=== PATIENT | female | born 1965 | race Caucasian/White ===

== ENCOUNTER 2017-02-10 14:42 | Inpatient (IN) | payer OTHER ==
[2017-02-10 17:08] VITALS: BMI 25.0
--- NOTE | 2017-02-10 20:10 | HP ---
COWS - Scale Resting Pulse: 1= [place] 81-100 Sweatin= Chills/Flushing Restless Observation: 1= Difficult to Sit Still Pupil Size: 0= Normal to Room Light Bone or Joint Aches: 2= Severe Diffuse Aches Runny Nose/ Eye Tearin= Runny Nose/Eyes GI Upset > 30mins: 2= Nausea/Diarrhea Tremor Observation: 2= Slight Tremor Visible Yawning Observation: 1= 1-2x During Session Anxiety or Irritability: 2=Irritable/Anxious Goose Flesh Skin: 0=Smooth Skin COWS Score: 14 CIWA Score - CIWA Score Nausea/Vomitin-Mild Nausea/No Vomiting Muscle Tremors: 4-Moderate,w/Arms Extend Anxiety: 4-Mod. Anxious/Guarded Agitation: 4-Moderately Restless Paroxysmal Sweats: 1-Minimal Palms Moist Orientation: 1-Uncertain about Date Tacttile Disturbances: 0-None Auditory Disturbances: 0-None Visual Disturbances: 0-None Headache: 0-None Present CIWA-Ar Total Score: 15 Admission ROS S - HPI Chief Complaint: WITHDRAWAL SX Allergies/Adverse Reactions: Allergies Allergy/AdvReac Type Severity Reaction Status Date / Time No Known Allergies Allergy Verified 05/25/15 17:05 History of Present Illness: 51 YEARS OLD FEMALE WITH LONG HISTORY OF ALCOHOL HEROIN COCAINE NICOTINE DEPENDENCE, HAS HEPATITIS C CHRRHOSIS OF LIVER SINCE 2014 ACITES TREATED 05/12 PINT ABDOMINAL FLUID WAS RELEASED, HAS APPOINTMENT EVERY 6 MONTHS DUE 2016 AND BIPOLAR II IS ADMITTED TO REHAB Exam Limitations: No Limitations - Ebola screening Have you traveled outside of the country in the last 21 days: No Have you had contact with anyone from an Ebola affected area: No Have you been sick,other than usual withdrawal symptoms: No Do you have a fever: No - Review of Systems Constitutional: Loss of Appetite, Changes in sleep, Unintentional Wgt. Loss, Unexplained wgt Loss EENT: reports: Blurred Vision (EYE GLASSES) Respiratory: reports: No Symptoms reported Cardiac: reports: Edema (ABDOMINAL) GI: reports: Nausea, Poor Appetite, Poor Fluid Intake, Abdominal cramping : reports: No Symptoms Reported Musculoskeletal: reports: Back Pain, Joint Pain, Muscle Pain, Neck Pain Integumentary: reports: Bruising (LUMBAR REGION AND BOTH SHOULDERS AND NECK), Change in Color, Dryness Neuro: reports: Tremors Endocrine: reports: No Symptoms Reported Hematology: reports: Easy Bruising Psychiatric: reports: Judgement Intact, Mood/Affect Appropiate, Depressed Other Systems: Reviewed and Negative Patient History - Patient Medical History Hx Anemia: No Hx Asthma: No Hx Chronic Obstructive Pulmonary Disease (COPD): No Hx Cancer: No Hx Cardiac Disorders: No Hx Congestive Heart Failure: No Hx Hypertension: No Hx Hypercholesterolemia: No Hx Pacemaker: No HX Cerebrovascular Accident: No Hx Seizures: No Hx Dementia: No Hx Diabetes: No Hx Gastrointestinal Disorders: No Hx Liver Disease: Yes (cirrhosis, ascites ) Hx Genitourinary Disorders: No Hx Sexually Transmitted Disorders: No Hx Renal Disease (ESRD): No Hx Thyroid Disease: No Hx Human Immunodeficiency Virus (HIV): No Hx Hepatitis C: Yes (follow up with [facility]) Hx Depression: No Hx Suicide Attempt: No Hx Bipolar Disorder: Yes Hx Schizophrenia: No - Patient Surgical History Past Surgical History: Yes Hx Neurologic Surgery: No Hx Cataract Extraction: No Hx Cardiac Surgery: No Hx Lung Surgery: No Hx Breast Surgery: No Hx Breast Biopsy: No Hx Abdominal Surgery: Yes (ASCITES 2014) Hx Appendectomy: No Hx Cholecystectomy: No Hx Genitourinary Surgery: No Hx Section: Yes (1995) Hx Orthopedic Surgery: No Hx Hysterectomy: No Other Surgical History: C SECTION 1986 Ascities drained in 04/24 in [facility] Unit Anesthesia Reaction: No - PPD History Previous Implant?: Yes Documented Results: Negative w/o proof Implanted On Prior R Admission?: Yes Date: 03/22/14 PPD to be Administered?: Yes - Reproductive History Patient is a Female of Child Bearing Age (11 -55 yrs old): Yes Last Menstrual Period: 02/10/14 Patient : No - Smoking Cessation Smoking history: Current every day smoker Have you smoked in the past 12 months: Yes Aproximately how many cigarettes per day: 5 Cigars Per Day: 0 Hx Chewing Tobacco Use: No Initiated information on smoking cessation: Yes 'Breaking Loose' booklet given: 02/10/17 - Substance & Tx. History Hx Alcohol Use: Yes Hx Substance Use: Yes Substance Use Type: Alcohol, Cocaine, Heroin Hx Substance Use Treatment: Yes (2014) - Substances Abused Heroin Route: Inhalation Frequency: Daily Amount used: 2-3 bags Age of first use: 14 Date of Last Use: 02/10/17 Alcohol Route: Oral Frequency: Daily Amount used: Liquor 16 oz Age of first use: 12 Date of Last Use: 02/10/17 Cocaine Route: Smoking Frequency: 1-3 times last 30 days Amount used: $20 Age of first use: 27 Date of Last Use: 02/09/17 Family Disease History - Family Disease History Family Disease History: Heart Disease: Father (ALCOHOLISM/HTN), Mother ( DEPRESSION), Other: Father, Mother Admission Physical Exam S - Vital Signs Vital Signs: Vital Signs - 24 hr 02/10/17 17:05 Temperature 98.3 F Pulse Rate 86 Respiratory 18 Rate Blood Pressure 113/71 - Physical General Appearance: Yes: Appropriately Dressed, Mild Distress, Thin, Tremorous, Irritable, Sweating, Anxious HEENTM: Yes: Hearing grossly Normal, Normal ENT Inspection, Normocephalic, Normal Voice Respiratory: Yes: Chest Non-Tender, Lungs Clear, Normal Breath Sounds, No Respiratory Distress, No Accessory Muscle Use Neck: Yes: Supple, Trachea in good position Breast: Yes: Breasts Symetrical Cardiology: Yes: Regular Rhythm, Regular Rate, S1, S2 Abdominal: Yes: Non Tender, Soft, Distended, Hepatomegaly, Other (ASCITES) Genitourinary: Yes: Within Normal Limits Back: Yes: Normal Inspection Musculoskeletal: Yes: full range of Motion, Gait Steady, Back pain, Muscle Pain Extremities: Yes: Normal Range of Motion, Non-Tender, Tremors, Swelling (ANKLES) Neurological: Yes: Alert, Motor Strength 5/5, Normal Response, Depressed Affect Integumentary: Yes: Dry, Warm Lymphatic: Yes: Within Normal Limits - Diagnostic (1) Bipolar II disorder Current Visit: Yes Status: Suspected (2) Cirrhosis Current Visit: Yes Status: Chronic Qualifiers: Hepatic cirrhosis type: alcoholic cirrhosis Ascites presence: with ascites Qualified Code(s): K70.31 - Alcoholic cirrhosis of liver with ascites; K70.31 - Alcoholic cirrhosis of liver with ascites; K70.31 - Alcoholic cirrhosis of liver with ascites (3) Hepatitis C Current Visit: Yes Status: Chronic Qualifiers: Viral hepatitis chronicity: chronic Hepatic coma status: without hepatic coma Qualified Code(s): B18.2 - Chronic viral hepatitis C; B18.2 - Chronic viral hepatitis C; B18.2 - Chronic viral hepatitis C; B18.2 - Chronic viral hepatitis C (4) Nicotine dependence Current Visit: Yes Status: Acute Qualifiers: Nicotine product type: cigarettes Substance use status: in withdrawal Qualified Code(s): F17.213 - Nicotine dependence, cigarettes, with withdrawal; F17.213 - Nicotine dependence, cigarettes, with withdrawal (5) Alcohol dependence with uncomplicated withdrawal Current Visit: Yes Status: Acute (6) Opioid dependence with withdrawal Current Visit: Yes Status: Acute (7) Ascites Current Visit: Yes Status: Chronic Qualifiers: Ascites type: due to alcoholic cirrhosis Qualified Code(s): K70.31 - Alcoholic cirrhosis of liver with ascites; K70.31 - Alcoholic cirrhosis of liver with ascites; K70.31 - Alcoholic cirrhosis of liver with ascites Cleared for Admission [facility] - Detox or Rehab S Level of Care: Medically Managed Detox Regimen/Protocol: Methadone/Librium S Breath Alcohol Content Breath Alcohol Content: 0 Urine Pregancy Test - Result Urine Test Results: Negative- NO Line Present Urine Drug Screen - Results Drug Screen Negative: No Urine Drug Screen Results: MIKIE-Cocaine, OPI-Opiates
[2017-02-10] MEDS ORDERED: ACETAMINOPHEN 325 MG TABLET (FP) PO PRN (20:16)
[2017-02-10] MEDS ORDERED: LOPERAMIDE HCL 2 MG CAPSULE PO PRN (20:16)
[2017-02-10] MEDS ORDERED: diphenhydrAMINE HCL 50 MG CAPSULE PO PRN (20:16)
[2017-02-10] MEDS ORDERED: MAGNESIUM HYDROX 2400MG/30ML ORAL SUSPENSION 30 ML CUP PO PRN (20:16)
[2017-02-10] MEDS ORDERED: P-EPHED 60MG/TRIPROLIDI 2.5MG TABLET PO PRN (20:16)
[2017-02-10] MEDS ORDERED: IBUPROFEN 400 MG TABLET (FP) PO PRN (20:16)
[2017-02-10] MEDS ORDERED: MENTHOL/PHENOL 1 EACH UD MM PRN (20:16)
[2017-02-10] MEDS ORDERED: MAGNESIUM CITRATE 300 ML BOTTLE PO PRN (20:16)
[2017-02-10] MEDS ORDERED: NICOTINE POLACRILEX 2 MG GUM BUC PRN (20:16)
[2017-02-10] MEDS ORDERED: chlordiazePOXIDE HCL 25 MG CAPSULE PO PRN (20:16)
[2017-02-10] MEDS ORDERED: METHADONE HCL 10 MG TABLET (FOR DETOX USE ONLY) PO ONE ×2 (20:16→23:00)
[2017-02-10] MEDS ORDERED: MAG HYDROX/AL HYDROX/SIMETH 30 ML UNIT-DOSE CUP PO PRN (20:16)
[2017-02-10] MEDS ORDERED: guaiFENesin/D-METHORPHAN HB 10 ML UNIT-DOSE CUPS PO PRN (20:16)
[2017-02-10] MEDS ORDERED: COLLOIDAL OATMEAL 1 BAR EACH TP PRN (20:20)
[2017-02-10] MEDS ORDERED: METHOCARBAMOL 500 MG TABLET PO PRN (20:32)
[2017-02-10] MEDS ORDERED: ONDANSETRON *ODT* 4 MG TABLET SL PRN (20:43)
[2017-02-10] MEDS: MINERAL OIL/PETROLAT/WATER TOPICAL CREAM 113 GM JAR TP SCH (22:26)
[2017-02-10] MEDS: chlordiazePOXIDE HCL 25 MG CAPSULE PO SCH (22:27)
[2017-02-10] MEDS: THIAMINE HCL 100 MG TABLET (FP) PO SCH (22:27)
[2017-02-10 23:08] LABS: URINE APPEARANCE SLCLOUDY; URINE BILIRUBIN NEGATIVE (NEGATIVE); URINE BLOOD NEGATIVE (NEGATIVE); URINE COLOR AMBER; URINE GLUCOSE (UA) NEGATIVE (NEGATIVE); URINE KETONE NEGATIVE (NEGATIVE); URINE LEUK ESTERASE NEGATIVE (NEGATIVE); URINE NITRITE NEGATIVE (NEGATIVE); URINE PROTEIN NEGATIVE (NEGATIVE); URINE UROBILINOGEN 4.0 E.U/dl mg/dL (0.2-1.0)
[2017-02-11] MEDS: chlordiazePOXIDE HCL 25 MG CAPSULE PO SCH ×4 (05:24→22:27)
--- NOTE | 2017-02-11 07:37 | CONSULT ---
[facility] Psychiatric Consult - Data Date of interview: 02/11/17 Admission source: [facility] Identifying data: This is 51 years old [place] with no psychiatric hospitalization bnistory, history of Bip[olar disorder, intoxicated with: Alcohol, Coxcaine, Opioids, Nixotine, history of PCP abuse Substance Abuse History: ing Cessation. Smoking history: Current every day smoker. Have you smoked in the past 12 months: Yes. Aproximately how many cigarettes per day: 5. Cigars Per Day: 0. Hx Chewing Tobacco Use: No. Initiated information on smoking cessation: Yes. 'Breaking Loose' booklet given : 02/10/17. - Substance & Tx. History. Hx Alcohol Use: Yes. Hx Substance Use : Yes. Substance Use Type: Alcohol, Cocaine, Heroin. Hx Substance Use Treatment: Yes (2014). - Substances Abused. Heroin. Route: Inhalation. Frequency: Daily. Amount used: 2-3 bags. Age of first use: 14. Date of Last Use: 02/10/17. Alcohol. Route: Oral. Frequency: Daily. Amount used: Liquor 16 oz. Age of first use: 12. Date of Last Use: 02/10/17. Cocaine. Route: Smoking. Frequency: 1-3 times last 30 days. Amount used: $20. Age of first use: 27. Date of Last Use: 02/09/17 Medical History: HepC+, Liver Crrhisis history, Hisotri of Ascites Psychiatric History: Patient reports history of Bipolar Disorder-II, reports taking prior to admission: Flexaril 10mg po tid. Zyprexa 5mg po bid. Ambien 10mg po qhs Physical/Sexual Abuse/Trauma History: Denies Additional Comment: Flexaril 10mg po tid. Zyprexa 5mg po bid. Ambien 10mg po qhs Mental Status Exam - Mental Status Exam Alert and Oriented to: Person Cognitive Function: Fair Patient Appearance: Unkempt Mood: Sad Patient Behavior: Sedated Speech Pattern: Slurred Voice Loudness: Normal Thought Process: Goal Oriented Thought Disorder: Being Controlled Hallucinations: Denies Suicidal Ideation: Denies Homicidal Ideation: Denies Insight/Judgement: Fair Sleep: Difficulty falling asleep Appetite: Fair Muscle strength/Tone: Mild Hypotonicity Gait/Station: Shuffling Additional Comments: Flexaril 10mg po tid. Zyprexa 5mg po bid. Ambien 10mg po qhs Psychiatric Findings - Problem List ([place] 1, 2,3) (1) Alcohol dependence with uncomplicated withdrawal Current Visit: Yes Status: Acute (2) Nicotine dependence Current Visit: Yes Status: Acute Qualifiers: Nicotine product type: cigarettes Substance use status: in withdrawal Qualified Code(s): F17.213 - Nicotine dependence, cigarettes, with withdrawal; F17.213 - Nicotine dependence, cigarettes, with withdrawal (3) Opioid dependence with withdrawal Current Visit: Yes Status: Acute (4) Ascites Current Visit: Yes Status: Chronic Qualifiers: Ascites type: due to alcoholic cirrhosis Qualified Code(s): K70.31 - Alcoholic cirrhosis of liver with ascites; K70.31 - Alcoholic cirrhosis of liver with ascites; K70.31 - Alcoholic cirrhosis of liver with ascites (5) Hepatitis C Current Visit: Yes Status: Chronic Qualifiers: Viral hepatitis chronicity: chronic Hepatic coma status: without hepatic coma Qualified Code(s): B18.2 - Chronic viral hepatitis C; B18.2 - Chronic viral hepatitis C; B18.2 - Chronic viral hepatitis C; B18.2 - Chronic viral hepatitis C (6) Bipolar II disorder Current Visit: Yes Status: Suspected (7) Alcohol dependence Current Visit: No Status: Chronic Qualifiers: Substance use status: uncomplicated Qualified Code(s): F10.20 - Alcohol dependence, uncomplicated; F10.20 - Alcohol dependence, uncomplicated; F10.20 - Alcohol dependence, uncomplicated (8) Cocaine abuse Current Visit: No Status: Chronic (9) Cocaine dependence Current Visit: No Status: Chronic Qualifiers: Substance use status: uncomplicated Qualified Code(s): F14.20 - Cocaine dependence, uncomplicated; F14.20 - Cocaine dependence, uncomplicated; F14.20 - Cocaine dependence, uncomplicated (10) Opioid dependence Current Visit: No Status: Chronic Qualifiers: Substance use status: uncomplicated Qualified Code(s): F11.20 - Opioid dependence, uncomplicated; F11.20 - Opioid dependence, uncomplicated; F11.20 - Opioid dependence, uncomplicated (11) Opioid dependence on agonist therapy Current Visit: No Status: Chronic - Initial Treatment Plan Initial Treatment Plan: Flexaril 10mg po tid. Zyprexa 5mg po bid. Ambien 10mg po qhs
[2017-02-11 09:43] LABS: MCH 32.6 pg (25.7-33.7); MEAN CELL VOLUME 98.8 fl (80-96); MEAN PLT VOLUME 9.6 fl (7.5-11.1); PLATELET COUNT 123 K/MM3 (134-434); RDW 15.3 % (11.6-15.6); WHITE BLOOD COUNT 3.9 K/mm3 (4.0-10.0)
[2017-02-11 09:58] LABS: ALBUMIN 2.4 g/dl (3.4-5.0); ALK PHOS 156 U/L (45-117); ANION GAP 4 (8-16); BILIRUBIN,TOTAL 1.3 mg/dL (0.2-1.0); CO2 27 mmol/L (21-32); CREATININE 0.5 mg/dL (0.55-1.02); GLUCOSE,RANDOM 97 mg/dL (74-106); SGOT/AST 58 U/L (15-37); SGPT/ALT 48 U/L (12-78)
[2017-02-11] MEDS ORDERED: METHADONE HCL 10 MG TABLET (FOR DETOX USE ONLY) PO SCH (10:00)
[2017-02-11] MEDS: NICOTINE 14 MG/24 HOURS TOPICAL PATCH TD SCH (10:45)
[2017-02-11] MEDS: PRENATAL VITAMINS W/ FOLIC ACID TABLET (FP) PO SCH (10:46)
[2017-02-11 11:40] LABS: HIV 1 & 2 AB NEGATIVE; HIV 1 AGp24 NEGATIVE
--- NOTE | 2017-02-11 11:51 | EKG ---
Test Reason : Blood Pressure : / mmHG Vent. Rate : 079 BPM Atrial Rate : 079 BPM P-R Int : 144 ms QRS Dur : 082 ms QT Int : 420 ms P-R-T Axes : -22 026 026 degrees QTc Int : 481 ms NORMAL SINUS RHYTHM PROLONGED QT ABNORMAL ECG NO PREVIOUS ECGS AVAILABLE Confirmed by BEVERLY PINA, PURVI ([id number]) on 02/11/2017 11:51:03 AM Referred By: Confirmed By:PURVI PAUL MD
--- NOTE | 2017-02-11 12:55 | PN ---
S CIWA - CIWA Score Nausea/Vomitin Muscle Tremors: 3 Anxiety: 2 Agitation: 2 Paroxysmal Sweats: 1-Minimal Palms Moist Orientation: 0-Oriented Tacttile Disturbances: 1-Very Mild Itch/Numbness Auditory Disturbances: 1-Very Mild Visual Disturbances: 1-Very Mild Sensitivity Headache: 2-Mild CIWA-Ar Total Score: 16 [facility] COWS - Scale Resting Pulse: 1= [place] 81-100 Sweatin= Chills/Flushing Restless Observation: 3= Extraneous Movement Pupil Size: 1= Pupils >than Normal Bone or Joint Aches: 2= Severe Diffuse Aches Runny Nose/ Eye Tearin= Runny Nose/Eyes GI Upset > 30mins: 3= Vomiting/Diarrhea Tremor Observation of Outstretched Hands: 2= Slight Tremor Visible Yawning Observation: 1= 1-2x During Session Anxiety or Irritability: 2=Irritable/Anxious Goose Flesh Skin: 0=Smooth Skin COWS Score: 18 S Progress Note (SOAP) Subjective: alert,irritable,anxious,tremor,pain in the body,joint,and back Objective: 02/11/17 12:53 Vital Signs Temperature 98.4 F 02/11/17 10:40 Pulse Rate 91 H 02/11/17 10:40 Respiratory Rate 20 02/11/17 10:40 Blood Pressure 114/84 02/11/17 10:40 O2 Sat by Pulse Oximetry (%) Laboratory Last Values WBC 3.9 K/mm3 (4.0-10.0) L D 02/11/17 07:00 RBC 3.47 M/mm3 (3.60-5.2) L 02/11/17 07:00 Hgb 11.3 GM/dL (10.7-15.3) D 02/11/17 07:00 Hct 34.3 % (32.4-45.2) D 02/11/17 07:00 MCV 98.8 fl (80-96) H 02/11/17 07:00 MCH 32.6 pg (25.7-33.7) 02/11/17 07:00 MCHC 33.0 g/dl (32.0-36.0) 02/11/17 07:00 RDW 15.3 % (11.6-15.6) 02/11/17 07:00 Plt Count 123 K/MM3 (134-434) L D 02/11/17 07:00 MPV 9.6 fl (7.5-11.1) D 02/11/17 07:00 Sodium 146 mmol/L (136-145) H 02/11/17 07:00 Potassium 3.9 mmol/L (3.5-5.1) 02/11/17 07:00 Chloride 115 mmol/L (98-107) H 02/11/17 07:00 Carbon Dioxide 27 mmol/L (21-32) 02/11/17 07:00 Anion Gap 4 (8-16) L 02/11/17 07:00 BUN 15 mg/dL (7-18) D 02/11/17 07:00 Creatinine 0.5 mg/dL (0.55-1.02) L 02/11/17 07:00 Creat Clearance w eGFR > 60 (>60) 02/11/17 07:00 Random Glucose 97 mg/dL (74-106) D 02/11/17 07:00 Calcium 8.0 mg/dL (8.5-10.1) L 02/11/17 07:00 Total Bilirubin 1.3 mg/dL (0.2-1.0) H D 02/11/17 07:00 AST 58 U/L (15-37) H D 02/11/17 07:00 ALT 48 U/L (12-78) D 02/11/17 07:00 Alkaline Phosphatase 156 U/L (45-117) H 02/11/17 07:00 Total Protein 6.0 g/dl (6.4-8.2) L 02/11/17 07:00 Albumin 2.4 g/dl (3.4-5.0) L 02/11/17 07:00 Urine Color [place] 02/10/17 21:29 Urine Appearance Slcloudy 02/10/17 21:29 Urine pH 5.0 (5.0-8.0) 02/10/17 21:29 Ur Specific [place] 1.025 (1.005-1.025) 02/10/17 21:29 Urine Protein Negative (NEGATIVE) 02/10/17 21:29 Urine Glucose (UA) Negative (NEGATIVE) 02/10/17 21:29 Urine Ketones Negative (NEGATIVE) 02/10/17 21:29 Urine Blood Negative (NEGATIVE) 02/10/17 21:29 Urine Nitrite Negative (NEGATIVE) 02/10/17 21:29 Urine Bilirubin Negative (NEGATIVE) 02/10/17 21:29 Urine Urobilinogen 4.0 e.u/dl mg/dL (0.2-1.0) H 02/10/17 21:29 RPR Titer Nonreactive (NONREACTIVE) 02/11/17 07:00 HIV 1&2 Antibody Screen Negative 02/11/17 07:00 HIV P24 Antigen Negative 02/11/17 07:00 Assessment: 02/11/17 12:54 withdrawal symptom 02/11/17 12:55 02/11/17 12:55 02/11/17 12:57 Plan: continue detox
[2017-02-11] MEDS: CYCLOBENZAPRINE HCL 10 MG TABLET (FP) PO SCH ×2 (14:56→22:27)
[2017-02-11] MEDS: OLANZapine 5 MG TABLET PO SCH ×2 (14:56→22:28)
[2017-02-11] MEDS: MINERAL OIL/PETROLAT/WATER TOPICAL CREAM 113 GM JAR TP SCH (22:27)
[2017-02-11] MEDS: ZOLPIDEM TARTRATE 10 MG TABLET (PARK CARE ONLY) PO PRN (22:27)
[2017-02-11] MEDS: THIAMINE HCL 100 MG TABLET (FP) PO SCH (22:28)
[2017-02-12] MEDS ORDERED: LACTULOSE 20 GM/30 ML UDC (FOR ORAL USE ONLY) PO ONE (01:28)
--- NOTE | 2017-02-12 01:30 | PN ---
[facility] Progress Note Note: ammonia level 122.2,lactulose 20 gram po now then qid,close monitoring
[2017-02-12] MEDS: chlordiazePOXIDE HCL 25 MG CAPSULE PO SCH ×2 (06:44→11:31)
[2017-02-12] MEDS: CYCLOBENZAPRINE HCL 10 MG TABLET (FP) PO SCH (06:46)
[2017-02-12] MEDS: OLANZapine 5 MG TABLET PO SCH ×2 (11:30→22:08)
[2017-02-12] MEDS: PRENATAL VITAMINS W/ FOLIC ACID TABLET (FP) PO SCH (11:30)
[2017-02-12] MEDS: NICOTINE 14 MG/24 HOURS TOPICAL PATCH TD SCH (11:31)
[2017-02-12] MEDS: METHADONE HCL 5 MG TABLET (FOR DETOX USE ONLY) PO SCH (11:31)
[2017-02-12] MEDS: LACTULOSE 20 GM/30 ML UDC (FOR ORAL USE ONLY) PO SCH ×4 (11:34→22:09)
--- NOTE | 2017-02-12 12:02 | PN ---
[facility] CIWA - CIWA Score Nausea/Vomitin-No Nausea/No Vomiting Muscle Tremors: 4-Moderate,w/Arms Extend Anxiety: 3 Agitation: 4-Moderately Restless Paroxysmal Sweats: 3 Orientation: 0-Oriented Tacttile Disturbances: 0-None Auditory Disturbances: 0-None Visual Disturbances: 0-None Headache: 0-None Present CIWA-Ar Total Score: 14 S COWS - Scale Resting Pulse: 0= [place] 80 or Below Sweatin=Flushed/Facial Moisture Restless Observation: 0= Sits Still Pupil Size: 0= Normal to Room Light Bone or Joint Aches: 1= Mild Discomfort Runny Nose/ Eye Tearin= Nasal Congestion GI Upset > 30mins: 1= Stomach Cramp Tremor Observation of Outstretched Hands: 1= Tremor [place], Not Seen Yawning Observation: 1= 1-2x During Session Anxiety or Irritability: 1=Feels Anxious/Irritable Goose Flesh Skin: 3=Piloerection COWS Score: 11 [facility] Progress Note (SOAP) Subjective: sweats body aches sleepy Objective: 02/12/17 11:57 Vital Signs Temperature 98.1 F 02/12/17 11:17 Pulse Rate 80 02/12/17 11:17 Respiratory Rate 16 02/12/17 11:17 Blood Pressure 153/88 02/12/17 11:17 O2 Sat by Pulse Oximetry (%) Laboratory Tests 02/10/17 02/11/17 02/11/17 21:29 07:00 07:00 WBC 3.9 L D RBC 3.47 L Hgb 11.3 D Hct 34.3 D MCV 98.8 H MCH 32.6 MCHC 33.0 RDW 15.3 Plt Count 123 L D MPV 9.6 D Sodium Potassium Chloride Carbon Dioxide Anion Gap BUN Creatinine Creat Clearance w eGFR Random Glucose Calcium Total Bilirubin AST ALT Alkaline Phosphatase Ammonia Total Protein Albumin Urine Color [place] Urine Appearance Slcloudy Urine pH 5.0 Ur Specific [place] 1.025 Urine Protein Negative Urine Glucose (UA) Negative Urine Ketones Negative Urine Blood Negative Urine Nitrite Negative Urine Bilirubin Negative Urine Urobilinogen 4.0 e.u/dl H RPR Titer HIV 1&2 Antibody Screen Negative HIV P24 Antigen Negative 02/11/17 02/11/17 02/11/17 07:00 07:00 07:00 WBC RBC Hgb Hct MCV MCH MCHC RDW Plt Count MPV Sodium 146 H Potassium 3.9 Chloride 115 H Carbon Dioxide 27 Anion Gap 4 L BUN 15 D Creatinine 0.5 L Creat Clearance w eGFR > 60 Random Glucose 97 D Calcium 8.0 L Total Bilirubin 1.3 H D AST 58 H D ALT 48 D Alkaline Phosphatase 156 H Ammonia 122.92 H Total Protein 6.0 L Albumin 2.4 L Urine Color Urine Appearance Urine pH Ur Specific [place] Urine Protein Urine Glucose (UA) Urine Ketones Urine Blood Urine Nitrite Urine Bilirubin Urine Urobilinogen RPR Titer Nonreactive HIV 1&2 Antibody Screen HIV P24 Antigen increase ammonia level; continue lactulose pt is awake, alert to name and time; confused to place of treatment pt is unsteady with ambulating all sedating medication on hold increase fluids pt is on 1:1 for safety issues Assessment: 02/12/17 12:01 withdrawal sx Plan: continue detox increase fluids continue 1:1
[2017-02-12] MEDS: THIAMINE HCL 100 MG TABLET (FP) PO SCH (22:08)
[2017-02-12] MEDS: chlordiazePOXIDE 5 MG CAPSULE PO SCH (22:08)
[2017-02-12] MEDS: MINERAL OIL/PETROLAT/WATER TOPICAL CREAM 113 GM JAR TP SCH (22:09)
[2017-02-13] MEDS: chlordiazePOXIDE 5 MG CAPSULE PO SCH ×3 (07:33→18:11)
--- NOTE | 2017-02-13 08:20 | PN ---
[facility] Progress Note Note: alert,orientedx3,stable gait,discontinue one on one
[2017-02-13] MEDS: LACTULOSE 20 GM/30 ML UDC (FOR ORAL USE ONLY) PO SCH ×4 (10:28→23:51)
[2017-02-13] MEDS: NICOTINE 14 MG/24 HOURS TOPICAL PATCH TD SCH (10:28)
[2017-02-13] MEDS: PRENATAL VITAMINS W/ FOLIC ACID TABLET (FP) PO SCH (10:28)
[2017-02-13] MEDS: METHADONE HCL 5 MG TABLET (FOR DETOX USE ONLY) PO SCH (10:28)
[2017-02-13] MEDS: OLANZapine 5 MG TABLET PO SCH ×2 (10:28→23:52)
--- NOTE | 2017-02-13 12:05 | PN ---
[facility] Progress Note (SOAP) Subjective: feeling so much better sweats Objective: 02/13/17 12:04 Vital Signs Temperature 98.6 F 02/13/17 10:00 Pulse Rate 86 02/13/17 10:00 Respiratory Rate 18 02/13/17 10:00 Blood Pressure 113/56 02/13/17 10:00 O2 Sat by Pulse Oximetry (%) Laboratory Tests 02/10/17 02/11/17 02/11/17 21:29 07:00 07:00 WBC 3.9 L D RBC 3.47 L Hgb 11.3 D Hct 34.3 D MCV 98.8 H MCH 32.6 MCHC 33.0 RDW 15.3 Plt Count 123 L D MPV 9.6 D Sodium Potassium Chloride Carbon Dioxide Anion Gap BUN Creatinine Creat Clearance w eGFR Random Glucose Calcium Total Bilirubin AST ALT Alkaline Phosphatase Ammonia Total Protein Albumin Urine Color [place] Urine Appearance Slcloudy Urine pH 5.0 Ur Specific [place] 1.025 Urine Protein Negative Urine Glucose (UA) Negative Urine Ketones Negative Urine Blood Negative Urine Nitrite Negative Urine Bilirubin Negative Urine Urobilinogen 4.0 e.u/dl H RPR Titer HIV 1&2 Antibody Screen Negative HIV P24 Antigen Negative 02/11/17 02/11/17 02/11/17 07:00 07:00 07:00 WBC RBC Hgb Hct MCV MCH MCHC RDW Plt Count MPV Sodium 146 H Potassium 3.9 Chloride 115 H Carbon Dioxide 27 Anion Gap 4 L BUN 15 D Creatinine 0.5 L Creat Clearance w eGFR > 60 Random Glucose 97 D Calcium 8.0 L Total Bilirubin 1.3 H D AST 58 H D ALT 48 D Alkaline Phosphatase 156 H Ammonia 122.92 H Total Protein 6.0 L Albumin 2.4 L Urine Color Urine Appearance Urine pH Ur Specific [place] Urine Protein Urine Glucose (UA) Urine Ketones Urine Blood Urine Nitrite Urine Bilirubin Urine Urobilinogen RPR Titer Nonreactive HIV 1&2 Antibody Screen HIV P24 Antigen aaox3 ambulating no acute distress Assessment: 02/13/17 12:05 withdrawal sx Plan: continue detox
[2017-02-13] MEDS: THIAMINE HCL 100 MG TABLET (FP) PO SCH (22:13)
[2017-02-13] MEDS: chlordiazePOXIDE HCL 10 MG CAPSULE PO SCH (22:13)
[2017-02-13] MEDS: MINERAL OIL/PETROLAT/WATER TOPICAL CREAM 113 GM JAR TP SCH (23:51)
[2017-02-14] MEDS: chlordiazePOXIDE HCL 10 MG CAPSULE PO SCH ×3 (06:23→17:12)
[2017-02-14] MEDS ORDERED: METHADONE HCL 10 MG TABLET (FOR DETOX USE ONLY) PO SCH (10:00)
[2017-02-14] MEDS: OLANZapine 5 MG TABLET PO SCH ×2 (10:21→22:26)
[2017-02-14] MEDS: PRENATAL VITAMINS W/ FOLIC ACID TABLET (FP) PO SCH (10:21)
[2017-02-14] MEDS: NICOTINE 14 MG/24 HOURS TOPICAL PATCH TD SCH (10:22)
[2017-02-14] MEDS: LACTULOSE 20 GM/30 ML UDC (FOR ORAL USE ONLY) PO SCH ×4 (10:23→22:25)
--- NOTE | 2017-02-14 11:17 | PN ---
[facility] Progress Note (SOAP) Subjective: Sweating,interrupted sleep,restless Objective: 02/14/17 11:16 Vital Signs - 8 hr 02/14/17 02/14/17 02/14/17 03:30 06:00 10:00 Temperature 96.6 F L 99.0 F Pulse Rate 89 90 Respiratory 18 16 18 Rate Blood Pressure 132/76 141/63 Laboratory Last Values WBC 3.9 K/mm3 (4.0-10.0) L D 02/11/17 07:00 RBC 3.47 M/mm3 (3.60-5.2) L 02/11/17 07:00 Hgb 11.3 GM/dL (10.7-15.3) D 02/11/17 07:00 Hct 34.3 % (32.4-45.2) D 02/11/17 07:00 MCV 98.8 fl (80-96) H 02/11/17 07:00 MCH 32.6 pg (25.7-33.7) 02/11/17 07:00 MCHC 33.0 g/dl (32.0-36.0) 02/11/17 07:00 RDW 15.3 % (11.6-15.6) 02/11/17 07:00 Plt Count 123 K/MM3 (134-434) L D 02/11/17 07:00 MPV 9.6 fl (7.5-11.1) D 02/11/17 07:00 Sodium 146 mmol/L (136-145) H 02/11/17 07:00 Potassium 3.9 mmol/L (3.5-5.1) 02/11/17 07:00 Chloride 115 mmol/L (98-107) H 02/11/17 07:00 Carbon Dioxide 27 mmol/L (21-32) 02/11/17 07:00 Anion Gap 4 (8-16) L 02/11/17 07:00 BUN 15 mg/dL (7-18) D 02/11/17 07:00 Creatinine 0.5 mg/dL (0.55-1.02) L 02/11/17 07:00 Creat Clearance w eGFR > 60 (>60) 02/11/17 07:00 Random Glucose 97 mg/dL (74-106) D 02/11/17 07:00 Calcium 8.0 mg/dL (8.5-10.1) L 02/11/17 07:00 Total Bilirubin 1.3 mg/dL (0.2-1.0) H D 02/11/17 07:00 AST 58 U/L (15-37) H D 02/11/17 07:00 ALT 48 U/L (12-78) D 02/11/17 07:00 Alkaline Phosphatase 156 U/L (45-117) H 02/11/17 07:00 Ammonia 122.92 umol/L (11-32) H 02/11/17 07:00 Total Protein 6.0 g/dl (6.4-8.2) L 02/11/17 07:00 Albumin 2.4 g/dl (3.4-5.0) L 02/11/17 07:00 Urine Color [place] 02/10/17 21:29 Urine Appearance Slcloudy 02/10/17 21:29 Urine pH 5.0 (5.0-8.0) 02/10/17 21:29 Ur Specific [place] 1.025 (1.005-1.025) 02/10/17 21:29 Urine Protein Negative (NEGATIVE) 02/10/17 21:29 Urine Glucose (UA) Negative (NEGATIVE) 02/10/17 21:29 Urine Ketones Negative (NEGATIVE) 02/10/17 21:29 Urine Blood Negative (NEGATIVE) 02/10/17 21:29 Urine Nitrite Negative (NEGATIVE) 02/10/17 21:29 Urine Bilirubin Negative (NEGATIVE) 02/10/17 21:29 Urine Urobilinogen 4.0 e.u/dl mg/dL (0.2-1.0) H 02/10/17 21:29 RPR Titer Nonreactive (NONREACTIVE) 02/11/17 07:00 HIV 1&2 Antibody Screen Negative 02/11/17 07:00 HIV P24 Antigen Negative 02/11/17 07:00 labs noted Assessment: 02/14/17 11:16 Withdrawal sx. Plan: Continue detox
[2017-02-14] MEDS: CYCLOBENZAPRINE HCL 5 MG TABLET PO SCH ×2 (13:11→22:25)
[2017-02-14] MEDS: ZOLPIDEM TARTRATE 10 MG TABLET (PARK CARE ONLY) PO PRN (21:21)
[2017-02-14] MEDS: MINERAL OIL/PETROLAT/WATER TOPICAL CREAM 113 GM JAR TP SCH (22:25)
[2017-02-14] MEDS: THIAMINE HCL 100 MG TABLET (FP) PO SCH (22:26)
[2017-02-15] MEDS ORDERED: METHADONE HCL 5 MG TABLET (FOR DETOX USE ONLY) PO SCH (06:00)
[2017-02-15] MEDS: CYCLOBENZAPRINE HCL 5 MG TABLET PO SCH (06:15)
[2017-02-15] MEDS: PRENATAL VITAMINS W/ FOLIC ACID TABLET (FP) PO SCH (09:19)
[2017-02-15] MEDS: OLANZapine 5 MG TABLET PO SCH (09:20)
[2017-02-15] MEDS: LACTULOSE 20 GM/30 ML UDC (FOR ORAL USE ONLY) PO SCH (09:20)
--- NOTE | 2017-02-15 09:35 | DS ---
[facility] Detox Discharge Summary Admission Date: 02/10/17 Discharge Date: 02/15/17 - History Present History: Alcohol Dependence, Opioid Dependence Additional Comments: FOLLOW UP WITH [facility] Pertinent Past History: HEPATITIS C CIRRHOSIS NICOTINE DEPENDENCE ASCITES - Physical Exam Results Vital Signs: Vital Signs Temperature 99.5 F 02/15/17 06:00 Pulse Rate 95 H 02/15/17 06:00 Respiratory Rate 18 02/15/17 06:00 Blood Pressure 126/83 02/15/17 06:00 O2 Sat by Pulse Oximetry (%) Pertinent Admission Physical Exam Findings: WITHDRAWAL SYMPTOM - Treatment Hospital Course: Detox Protocol Followed, Detoxed Safely, Responded well, Discharged Condition Good, Rehab Referral Accepted Patient has Accepted a Rehab Referral to: [facility] - Medication Discharge Medications: Ambulatory Orders Cyclobenzaprine HCl [Flexeril 10 mg] 10 mg PO TID PRN 02/10/17 Olanzapine [Zyprexa -] 10 mg PO DAILY 02/10/17 Zolpidem Tartrate [Ambien] 10 mg PO HS 02/10/17 Cyclobenzaprine HCl [Flexeril -] 10 mg PO TID #90 tablet 02/11/17 Olanzapine [Zyprexa -] 5 mg PO BID #60 tablet 02/11/17 - AMA Did Patient Leave Against Medical Advice: No
[2017-02-15 10:26] VITALS: BP 119/65; PULSE 87; TEMP 97.3
--- NOTE | 2017-02-15 10:39 | PN ---
[facility] Progress Note Note: PATIENT ALSO HAS HIGH AMMONIA LEVEL PRESCRIPTION LACTULOSE 30 ML @) GRAMS) PO QID FOR 7 DAYS
== END 2017-02-15 10:06 | disposition home or self-care (01) | DRG 773 ==
LOC: YASAS 14:42 → Y6N 18:37
PROVIDERS: ADMIT Internal Medicine; ATTEND Internal Medicine
PROC: HZ2ZZZZ Detoxification Services for Substance Abuse Treatment (ICD-10-PCS; principal; 2017-02-10)
DX: F11.23 Opioid dependence with withdrawal (principal); F10.230 Alcohol dependence with withdrawal, uncomplicated; F14.10 Cocaine abuse, uncomplicated; F17.210 Nicotine dependence, cigarettes, uncomplicated; F31.81 Bipolar II disorder; F42.4 Excoriation (skin-picking) disorder; K70.31 Alcoholic cirrhosis of liver with ascites; E72.20 Disorder of urea cycle metabolism, unspecified; B18.2 Chronic viral hepatitis C
CPT/HCPCS: 36415; 80053; 81003; 82140; 85027; 86593; 87389; 93005; 93010

== ENCOUNTER 2017-09-24 09:23 | Inpatient (IN) | payer OTHER ==
[2017-09-24 09:53] VITALS: BMI 28.8
--- NOTE | 2017-09-24 13:02 | HP ---
COWS - Scale Resting Pulse: 2= IN 101-120 Sweatin= Chills/Flushing Restless Observation: 1= Difficult to Sit Still Pupil Size: 0= Normal to Room Light Bone or Joint Aches: 2= Severe Diffuse Aches Runny Nose/ Eye Tearin= None GI Upset > 30mins: 3= Vomiting/Diarrhea Tremor Observation: 2= Slight Tremor Visible Yawning Observation: 1= 1-2x During Session Anxiety or Irritability: 2=Irritable/Anxious Goose Flesh Skin: 3=Piloerection COWS Score: 17 CIWA Score - CIWA Score Nausea/Vomitin Muscle Tremors: 3 Anxiety: 4-Mod. Anxious/Guarded Agitation: 0-Normal Activity Paroxysmal Sweats: 2 Orientation: 0-Oriented Tacttile Disturbances: 3-Moderate Itch/Numb/Burn Auditory Disturbances: 1-Very Mild Visual Disturbances: 2-Mild Sensitivity Headache: 2-Mild CIWA-Ar Total Score: 20 Admission ROS BHS - HPI Chief Complaint: "I'm here for Detox and Rehab. I have had enough." Patient is here to Detox from alcohol and Heroin. Allergies/Adverse Reactions: Allergies Allergy/AdvReac Type Severity Reaction Status Date / Time No Known Allergies Allergy Verified 09/24/17 10:09 History of Present Illness: Patient is a 52 YO female here to Detox from heroin and Alcohol. Patient has had several previous Detox admissions at [facility] (last: 02/2017). Exam Limitations: No Limitations - Ebola screening Have you traveled outside of the country in the last 21 days: No Have you had contact with anyone from an Ebola affected area: No Have you been sick,other than usual withdrawal symptoms: No Do you have a fever: No - Review of Systems Constitutional: Chills, Diaphoresis, Fever, Malaise, Night Sweats, Changes in sleep EENT: reports: Blurred Vision, Tearing Respiratory: reports: SOB at Rest Cardiac: reports: No Symptoms Reported GI: reports: Diarrhea, Nausea, Vomiting, Indigestion : reports: No Symptoms Reported Musculoskeletal: reports: Back Pain, Joint Pain, Muscle Pain, Neck Pain, Joint Stiffness Integumentary: reports: No Symptoms Reported Neuro: reports: Headache, Numbness (In Fingertips of Bilateral Hands and toes of Bilateral feet.), Tingling (In Fingertips of Bilateral Hands and toes of Bilateral feet.), Tremors, Other ("Blackouts" Last episode: approx. 3 weeks ago. ) Endocrine: reports: No Symptoms Reported Hematology: reports: Anemia (Iron-Deficiency type. Iron supplementation in past , none currently.) Psychiatric: reports: Judgement Intact, Mood/Affect Appropiate, Orientated x3, Anxious, Depressed (Takes meds.) Other Systems: Reviewed and Negative Patient History - Patient Medical History Hx Anemia: Yes (Iron-Deficiency type, med. in past, none currently.) Hx Asthma: No Hx Chronic Obstructive Pulmonary Disease (COPD): No Hx Cancer: No Hx Cardiac Disorders: No Hx Congestive Heart Failure: No Hx Hypertension: No Hx Hypercholesterolemia: No Hx Pacemaker: No HX Cerebrovascular Accident: No Hx Seizures: No Hx Dementia: No Hx Diabetes: No Hx Gastrointestinal Disorders: No Hx Liver Disease: Yes (cirrhosis, ascites; Hep C (no treatment yet).) Hx Genitourinary Disorders: No Hx Sexually Transmitted Disorders: No Hx Renal Disease (ESRD): No Hx Thyroid Disease: No Hx Human Immunodeficiency Virus (HIV): No (Last Tested in 2016: NEGATIVE.) Hx Hepatitis C: Yes (Diagnosed 2004; [place] follow-up with [facility]) Hx Depression: Yes (Meds.) Hx Suicide Attempt: Yes (X1 by cutting wrist (2017); PATIENT DENIES CURRENT SI / HI.) Hx Bipolar Disorder: Yes (Meds.) Hx Schizophrenia: No Other Medical History: DENIES. - Patient Surgical History Past Surgical History: Yes Hx Neurologic Surgery: No Hx Cataract Extraction: No Hx Cardiac Surgery: No Hx Lung Surgery: No Hx Breast Surgery: Yes (breast mass removed bilateral 2016) Hx Breast Biopsy: No Hx Abdominal Surgery: Yes (ASCITES; FLUID DRAINED, 2014) Hx Appendectomy: No Hx Cholecystectomy: No Hx Genitourinary Surgery: No Hx Section: Yes (1985) Hx Orthopedic Surgery: No Hx Hysterectomy: No Other Surgical History: Repair of Left foot after injury (2015). Anesthesia Reaction: No - PPD History Previous Implant?: Yes Documented Results: Negative w/proof Date: 02/12/17 Results: 0mm PPD to be Administered?: No - Reproductive History Patient is a Female of Child Bearing Age (11 -55 yrs old): Yes Last Menstrual Period: 07/26/13 LMP comment: Last Menstruation: approx. 4 years ago. Patient : No - Smoking Cessation Smoking history: Current every day smoker Have you smoked in the past 12 months: Yes Aproximately how many cigarettes per day: 10 Cigars Per Day: 0 Hx Chewing Tobacco Use: No Initiated information on smoking cessation: Yes 'Breaking Loose' booklet given: 09/24/17 (GIVEN TO PATIENT.) - Substance & Tx. History Hx Alcohol Use: Yes Hx Substance Use: Yes Substance Use Type: Alcohol, Cocaine, Heroin Hx Substance Use Treatment: Yes (Previous Detox admissions at [facility] (Last: 2016).) - Substances Abused Heroin Route: Inhalation Frequency: Daily Amount used: 3BAGS Age of first use: 14 Date of Last Use: 09/23/17 Alcohol Route: Oral Frequency: 1-2 times per week Amount used: 1 PINT - vODKA Age of first use: 11 Date of Last Use: 09/24/17 Crack Route: Smoking Frequency: 1-2 times per week Amount used: $20 Age of first use: 23 Date of Last Use: 09/22/17 Family Disease History - Family Disease History Family Disease History: Heart Disease: Father (ALCOHOLISM/HTN), Other: Father, Mother (DEPRESSION), Daughter (ASTHMA.) Admission Physical Exam S - Vital Signs Vital Signs: Vital Signs - 24 hr 09/24/17 09:45 Temperature 98.7 F Pulse Rate 104 H Respiratory 18 Rate Blood Pressure 142/79 - Physical General Appearance: Yes: No Apparent Distress, Nourished, Appropriately Dressed , Tremorous, Anxious HEENTM: Yes: Hearing grossly Normal, Normocephalic, Normal Voice, KENISHA, Pharynx Normal Respiratory: Yes: Chest Non-Tender, Lungs Clear, No Respiratory Distress, No Accessory Muscle Use Neck: Yes: No masses,lesions,Nodules, Supple, Trachea in good position Breast: Yes: Breast Exam Deferred Cardiology: Yes: Regular Rhythm, Regular Rate, S1, S2, Tachycardia Abdominal: Yes: Normal Bowel Sounds, Non Tender, Distended (History of Ascites.) Genitourinary: Yes: Within Normal Limits Back: Yes: Decreased Range of Motion Musculoskeletal: Yes: Gait Steady, Back pain, Joint Stiffness Extremities: Yes: Normal Capillary Refill, Tremors Neurological: Yes: Fully Oriented, Alert, Normal Mood/Affect, Normal Response Integumentary: Yes: Normal Color, Dry, Warm, Track Gustafson (Noted in cubital crease of Right Arm. No Signs of infection noted at site.) Lymphatic: Yes: Within Normal Limits - Diagnostic (1) History of depression Current Visit: Yes Status: Suspected (2) History of bipolar disorder Current Visit: Yes Status: Acute (3) Alcohol dependence with uncomplicated withdrawal Current Visit: Yes Status: Acute (4) Nicotine dependence Current Visit: Yes Status: Chronic Qualifiers: Nicotine product type: cigarettes Substance use status: uncomplicated Qualified Code(s): F17.210 - Nicotine dependence, cigarettes, uncomplicated (5) Cirrhosis Current Visit: Yes Status: Chronic Qualifiers: Hepatic cirrhosis type: alcoholic cirrhosis Ascites presence: with ascites Qualified Code(s): K70.31 - Alcoholic cirrhosis of liver with ascites (6) Cocaine dependence Current Visit: Yes Status: Chronic Qualifiers: Substance use status: uncomplicated Qualified Code(s): F14.20 - Cocaine dependence, uncomplicated (7) Hepatitis C Current Visit: Yes Status: Chronic Qualifiers: Viral hepatitis chronicity: chronic Hepatic coma status: without hepatic coma Qualified Code(s): B18.2 - Chronic viral hepatitis C (8) Opioid dependence with withdrawal Current Visit: Yes Status: Acute (9) History of iron deficiency anemia Current Visit: Yes Status: Suspected Cleared for Admission S - Detox or Rehab [facility] Level of Care: Medically Managed Detox Regimen/Protocol: Methadone/Librium S Breath Alcohol Content Breath Alcohol Content: 0.076 Urine Pregancy Test - Result Urine Test Results: Negative- NO Line Present Urine Drug Screen - Results Drug Screen Negative: No Urine Drug Screen Results: THC-Marijuana, MIKIE-Cocaine, OPI-Opiates
[2017-09-24] MEDS ORDERED: MAGNESIUM HYDROX 2400MG/30ML ORAL SUSPENSION 30 ML CUP PO PRN (13:29)
[2017-09-24] MEDS ORDERED: P-EPHED 60MG/TRIPROLIDI 2.5MG TABLET PO PRN (13:29)
[2017-09-24] MEDS ORDERED: MAG HYDROX/AL HYDROX/SIMETH 30 ML UNIT-DOSE CUP PO PRN (13:29)
[2017-09-24] MEDS ORDERED: guaiFENesin/D-METHORPHAN HB 10 ML UNIT-DOSE CUPS PO PRN (13:29)
[2017-09-24] MEDS ORDERED: LOPERAMIDE HCL 2 MG CAPSULE PO PRN (13:29)
[2017-09-24] MEDS ORDERED: IBUPROFEN 400 MG TABLET (FP) PO PRN (13:29)
[2017-09-24] MEDS ORDERED: MAGNESIUM CITRATE 300 ML BOTTLE PO PRN (13:29)
[2017-09-24] MEDS ORDERED: MENTHOL/PHENOL 1 EACH UD MM PRN (13:29)
[2017-09-24] MEDS ORDERED: ACETAMINOPHEN 325 MG TABLET (FP) PO PRN (13:29)
[2017-09-24] MEDS ORDERED: chlordiazePOXIDE HCL 25 MG CAPSULE PO ONE (14:35)
[2017-09-24] MEDS ORDERED: METHADONE HCL 10 MG TABLET (FOR DETOX USE ONLY) PO ONE ×2 (14:40→23:00)
[2017-09-24] MEDS: SPIRONOLACTONE 25 MG TABLET (FP) PO SCH (15:21)
[2017-09-24] MEDS: FUROSEMIDE 20 MG TABLET (FP) PO SCH (15:22)
--- NOTE | 2017-09-24 16:23 | EKG ---
Test Reason : Blood Pressure : / mmHG Vent. Rate : 091 BPM Atrial Rate : 091 BPM P-R Int : 146 ms QRS Dur : 074 ms QT Int : 408 ms P-R-T Axes : -15 052 050 degrees QTc Int : 501 ms NORMAL SINUS RHYTHM PROLONGED QT ABNORMAL ECG WHEN COMPARED WITH ECG OF 10-FEB-2017 20:44, NONSPECIFIC T WAVE ABNORMALITY NO LONGER EVIDENT IN ANTERIOR LEADS Confirmed by ROZINA PINA, EDSON ([id number]) on 09/24/2017 4:23:45 PM Referred By: Confirmed By:EDSON HANDY MD
[2017-09-24] MEDS: chlordiazePOXIDE HCL 25 MG CAPSULE PO SCH ×2 (17:04→22:23)
[2017-09-24] MEDS ORDERED: MELATONIN 5 MG TABLETS PO PRN (22:00)
[2017-09-24] MEDS: THIAMINE HCL 100 MG TABLET (FP) PO SCH (22:23)
[2017-09-25 03:36] LABS: URINE APPEARANCE CLOUDY; URINE BILIRUBIN NEGATIVE (<2.0 mg/dL); URINE COLOR AMBER; URINE GLUCOSE (UA) NEGATIVE (NEGATIVE); URINE KETONE NEGATIVE (NEGATIVE); URINE LEUK ESTERASE NEGATIVE (NEGATIVE); URINE NITRITE NEGATIVE (NEGATIVE); URINE PROTEIN NEGATIVE (NEGATIVE); URINE UROBILINOGEN 4.0 E.U/dl mg/dL (0.2-1.0)
[2017-09-25] MEDS: chlordiazePOXIDE HCL 25 MG CAPSULE PO SCH ×4 (05:24→22:19)
[2017-09-25 09:33] LABS: HEMATOCRIT 38.5 % (32.4-45.2); HEMOGLOBIN 13.2 GM/dL (10.7-15.3); MCH 33.9 pg (25.7-33.7); MCHC 34.2 g/dl (32.0-36.0); MEAN CELL VOLUME 99.2 fl (80-96); MEAN PLT VOLUME 8.2 fl (7.5-11.1); PLATELET COUNT 86 K/MM3 (134-434); RBC 3.88 M/mm3 (3.60-5.2); RDW 14.2 % (11.6-15.6); WHITE BLOOD COUNT 4.4 K/mm3 (4.0-10.0)
[2017-09-25 09:49] LABS: CHLORIDE 107 mmol/L (98-107); SODIUM 141 mmol/L (136-145)
[2017-09-25] MEDS ORDERED: METHADONE HCL 10 MG TABLET (FOR DETOX USE ONLY) PO SCH (10:00)
[2017-09-25 10:01] LABS: ALK PHOS 171 U/L (45-117); ANION GAP 8 (8-16); BILIRUBIN,TOTAL 2.4 mg/dL (0.2-1.0); BLOOD UREA NITROGEN 12 mg/dL (7-18); CALCIUM 8.1 mg/dL (8.5-10.1); CO2 26 mmol/L (21-32); CREATININE 0.7 mg/dL (0.55-1.02); GLUCOSE,RANDOM 193 mg/dL (74-106); SGOT/AST 64 U/L (15-37); SGPT/ALT 50 U/L (12-78)
--- NOTE | 2017-09-25 10:12 | PN ---
S CIWA - CIWA Score Nausea/Vomitin Muscle Tremors: 3 Anxiety: 3 Agitation: 3 Paroxysmal Sweats: 1-Minimal Palms Moist Orientation: 0-Oriented Tacttile Disturbances: 1-Very Mild Itch/Numbness Auditory Disturbances: 1-Very Mild Visual Disturbances: 0-None Headache: 2-Mild CIWA-Ar Total Score: 17 BHS Progress Note (SOAP) Subjective: ALERT,IRRITABLE,ANXIOUS,INTERRUPTED SLEEP,TREMOR Objective: 09/25/17 10:07 Vital Signs Temperature 98.4 F 09/25/17 09:41 Pulse Rate 107 H 09/25/17 09:41 Respiratory Rate 18 09/25/17 09:41 Blood Pressure 136/86 09/25/17 09:41 O2 Sat by Pulse Oximetry (%) 09/25/17 10:07 EKG NSR,PROLONG QT 408/501 Laboratory Last Values WBC 4.4 K/mm3 (4.0-10.0) 09/25/17 05:50 RBC 3.88 M/mm3 (3.60-5.2) 09/25/17 05:50 Hgb 13.2 GM/dL (10.7-15.3) D 09/25/17 05:50 Hct 38.5 % (32.4-45.2) 09/25/17 05:50 MCV 99.2 fl (80-96) H 09/25/17 05:50 MCH 33.9 pg (25.7-33.7) H 09/25/17 05:50 MCHC 34.2 g/dl (32.0-36.0) 09/25/17 05:50 RDW 14.2 % (11.6-15.6) 09/25/17 05:50 Plt Count 86 K/MM3 (134-434) L D 09/25/17 05:50 MPV 8.2 fl (7.5-11.1) D 09/25/17 05:50 Sodium 141 mmol/L (136-145) 09/25/17 05:50 Potassium 4.0 mmol/L (3.5-5.1) 09/25/17 05:50 Chloride 107 mmol/L (98-107) 09/25/17 05:50 Carbon Dioxide 26 mmol/L (21-32) 09/25/17 05:50 Anion Gap 8 (8-16) 09/25/17 05:50 BUN 12 mg/dL (7-18) 09/25/17 05:50 Creatinine 0.7 mg/dL (0.55-1.02) 09/25/17 05:50 Creat Clearance w eGFR > 60 (>60) 09/25/17 05:50 Random Glucose 193 mg/dL (74-106) H 09/25/17 05:50 Calcium 8.1 mg/dL (8.5-10.1) L 09/25/17 05:50 Total Bilirubin 2.4 mg/dL (0.2-1.0) H D 09/25/17 05:50 AST 64 U/L (15-37) H 09/25/17 05:50 ALT 50 U/L (12-78) 09/25/17 05:50 Alkaline Phosphatase 171 U/L (45-117) H 09/25/17 05:50 Total Protein 7.0 g/dl (6.4-8.2) 09/25/17 05:50 Albumin 3.0 g/dl (3.4-5.0) L 09/25/17 05:50 Urine Color [place] 09/24/17 15:10 Urine Appearance Cloudy 09/24/17 15:10 Urine pH 7.0 (5.0-8.0) D 09/24/17 15:10 Ur Specific [place] 1.017 (1.001-1.035) 09/24/17 15:10 Urine Protein Negative (NEGATIVE) 09/24/17 15:10 Urine Glucose (UA) Negative (NEGATIVE) 09/24/17 15:10 Urine Ketones Negative (NEGATIVE) 09/24/17 15:10 Urine Blood Negative (NEGATIVE) 09/24/17 15:10 Urine Nitrite Negative (NEGATIVE) 09/24/17 15:10 Urine Bilirubin Negative (<2.0 mg/dL) 09/24/17 15:10 Urine Urobilinogen 4.0 e.u/dl mg/dL (0.2-1.0) H 09/24/17 15:10 Ur Leukocyte Esterase Negative (NEGATIVE) 09/24/17 15:10 09/25/17 10:09 LABS PENDING Assessment: 09/25/17 10:09 WITHDRAWAL SYMPTOM Plan: CONTINUE DETOX,BGM MONITORING,INITIAL GLUCOSE 193,BILI 2.4,AST 64,FASTING BLOOD GLUCOSE IN AM,REPEAT CMP,INR IN AM,D/C TYLENOL
[2017-09-25] MEDS: FUROSEMIDE 20 MG TABLET (FP) PO SCH (10:42)
[2017-09-25] MEDS: SPIRONOLACTONE 25 MG TABLET (FP) PO SCH (10:42)
[2017-09-25] MEDS: PRENATAL VITAMINS W/ FOLIC ACID TABLET (FP) PO SCH (10:42)
--- NOTE | 2017-09-25 16:41 | CONSULT ---
[facility] Psychiatric Consult - Data Date of interview: 09/25/17 Admission source: [facility] Identifying data: Readmission to [facility] for this 52 y/o female seeking detox treatment on for heroin,cocaine (crack) and alcohol dependence.Patient is ,a mother of five,domiciled,unemployed and supported on Public Assistance. Substance Abuse History: Confirmed by patient in this interview.Smoking history : Current every day smoker. Have you smoked in the past 12 months: Yes. Aproximately how many cigarettes per day: 10. Cigars Per Day: 0. Hx Chewing Tobacco Use: No. Initiated information on smoking cessation: Yes. 'Breaking Loose' booklet given: 09/24/17 (GIVEN TO PATIENT.). - Substance & Tx. History. Hx Alcohol Use: Yes. Hx Substance Use: Yes. Substance Use Type: Alcohol, Cocaine, Heroin. Hx Substance Use Treatment: Yes (Previous Detox admissions at [facility] (Last: 02/2017).). - Substances Abused. Heroin. Route: Inhalation. Frequency: Daily. Amount used: 3BAGS. Age of first use: 14. Date of Last Use : 09/23/17. Alcohol. Route: Oral. Frequency: 1-2 times per week. Amount used: 1 PINT - vODKA. Age of first use: 11. Date of Last Use: 09/24/17. Crack. Route: Smoking. Frequency: 1-2 times per week. Amount used: $20. Age of first use: 23. Date of Last Use: 09/22/17 Medical History: Hepatitis C and cirrhosis of the liver. Psychiatric History: Patient admits to a history of one psychiatric hospitalization ([facility] in 2017).Diagnosed with Bipolar Disorder.Prescribed risperdal 1 mg /hs + zyprexa 10 mg/hs + remeron 30 mg/hs + ambien 10 mg/hs (verified by pharmacy claims of 09/07/17 at the [facility]).Ms Carranza is followed at the [facility] in the [place].Presents with a history of one suicide attempt (wrist-cutting) in 2017. Physical/Sexual Abuse/Trauma History: Patient denies. Additional Comment: Urine Drug Screen Results: THC-Marijuana, MIKIE-Cocaine, OPI- Opiates.Noted. Mental Status Exam - Mental Status Exam Alert and Oriented to: Time, Place, Person Cognitive Function: Good Patient Appearance: Well Groomed (small stature,petite) Mood: Anxious, Apprehensive Affect: Mood Congruent Patient Behavior: Fatigued, Appropriate, Cooperative Speech Pattern: Clear, Appropriate Voice Loudness: Normal Thought Process: Goal Oriented Thought Disorder: Not Present Hallucinations: Denies Suicidal Ideation: Denies Homicidal Ideation: Denies Insight/Judgement: Poor Sleep: Poorly, Difficulty falling asleep Appetite: Good Muscle strength/Tone: Normal Gait/Station: Normal Psychiatric Findings - Problem List ([place] 1, 2,3) (1) Opioid dependence with withdrawal Current Visit: Yes Status: Acute (2) Alcohol dependence with uncomplicated withdrawal Current Visit: Yes Status: Acute (3) Cocaine dependence Current Visit: Yes Status: Acute Qualifiers: Substance use status: uncomplicated Qualified Code(s): F14.20 - Cocaine dependence, uncomplicated (4) Nicotine dependence Current Visit: Yes Status: Acute Qualifiers: Nicotine product type: cigarettes Substance use status: uncomplicated Qualified Code(s): F17.210 - Nicotine dependence, cigarettes, uncomplicated (5) Substance induced mood disorder Current Visit: Yes Status: Acute (6) Bipolar disorder Current Visit: Yes Status: Acute (7) Insomnia Current Visit: Yes Status: Acute - Initial Treatment Plan Initial Treatment Plan: Psychoeducation.Sleep hygiene.Detoxification.Medications : zyprexa 10 mg po daily + ambien 10 mg po hs prn + remeron 15 mg po hs.Side effects/benefits of these medications are discussed with the patient.She agrees with this careplan.Observation.
[2017-09-25] MEDS: chlordiazePOXIDE HCL 25 MG CAPSULE PO PRN (18:33)
[2017-09-25] MEDS ORDERED: ZOLPIDEM TARTRATE 10 MG TABLET (PARK CARE ONLY) PO PRN (22:00)
[2017-09-25] MEDS: THIAMINE HCL 100 MG TABLET (FP) PO SCH (22:18)
[2017-09-25] MEDS: MIRTAZAPINE 15 MG TABLET (FP) PO SCH (22:19)
[2017-09-26] MEDS: chlordiazePOXIDE HCL 25 MG CAPSULE PO PRN (01:08)
--- NOTE | 2017-09-26 02:53 | PN ---
[facility] Progress Note Note: MD'S NOTE: CALLED AT 2:15AM AND INFORMED THAT THE PT. FELL ON THE FLOOR AND HIT THE HEAD - SHE CLAIMS SUB: DENIES ANY PAIN, HEADACHES, BLURRED VISION, N/V, DIZZINESS OBJ: THE PT. IS AYALA X 3, NOT IN DISTRESS AND SHE IS AMBULATORY V/S: 98.8B-34-11-141/80-02 SATS. AT 99% S/E: DIAL MAKER: NO FOCAL DEFICITS NOTED NO VISIBLE INJURIES NOTED AT THIS TIME CVS: -JVD, NL HEART SOUNDS, NO MURMURS LUNGS: VESICULAR BREATH SOUNDS, NO RALES, NO RHONCHI, NO WHEEZING ABD: DISTENDED, SOFT, NT, B.S.+ IMPRESSION: ACCIDENTAL FALL - APPARENTLY WITHOUT ANY VISIBLE INJURY AT THIS TIME PLANS: PROTOCOL #1 OBSERVATION ER - DR. ROBSON PINA WAS NOTIFIED AND THE PT. IS BEING TRANSFERRED TO THE ER FOR EVALUATION WITH CT-SCAN OF THE HEAD WILL F/U: NEEDED. PROVIDER: IRVIN DURON MD
[2017-09-26] MEDS: chlordiazePOXIDE HCL 25 MG CAPSULE PO SCH ×2 (06:17→10:50)
[2017-09-26] MEDS: SPIRONOLACTONE 25 MG TABLET (FP) PO SCH (10:48)
[2017-09-26] MEDS: METHADONE HCL 5 MG TABLET (FOR DETOX USE ONLY) PO SCH (10:49)
[2017-09-26] MEDS: PRENATAL VITAMINS W/ FOLIC ACID TABLET (FP) PO SCH (10:49)
[2017-09-26] MEDS: FUROSEMIDE 20 MG TABLET (FP) PO SCH (10:49)
[2017-09-26] MEDS: OLANZapine 10 MG TABLET PO SCH (11:00)
--- NOTE | 2017-09-26 14:08 | PN ---
S CIWA - CIWA Score Nausea/Vomitin Muscle Tremors: 3 Anxiety: 3 Agitation: 3 Paroxysmal Sweats: 2 Orientation: 0-Oriented Tacttile Disturbances: 0-None Auditory Disturbances: 0-None Visual Disturbances: 0-None Headache: 0-None Present CIWA-Ar Total Score: 14 S Progress Note (SOAP) Subjective: Sleep disturbance Sweats shakes abdominal cramp Objective: 09/26/17 14:05 A & O x 3 Anxious returned from ER, states feels fine post fall Vital Signs Temperature 98.8 F 09/26/17 13:55 Pulse Rate 98 H 09/26/17 13:55 Respiratory Rate 18 09/26/17 13:55 Blood Pressure 148/79 09/26/17 13:55 O2 Sat by Pulse Oximetry (%) Laboratory Last Values WBC 4.4 K/mm3 (4.0-10.0) 09/25/17 05:50 RBC 3.88 M/mm3 (3.60-5.2) 09/25/17 05:50 Hgb 13.2 GM/dL (10.7-15.3) D 09/25/17 05:50 Hct 38.5 % (32.4-45.2) 09/25/17 05:50 MCV 99.2 fl (80-96) H 09/25/17 05:50 MCH 33.9 pg (25.7-33.7) H 09/25/17 05:50 MCHC 34.2 g/dl (32.0-36.0) 09/25/17 05:50 RDW 14.2 % (11.6-15.6) 09/25/17 05:50 Plt Count 86 K/MM3 (134-434) L D 09/25/17 05:50 MPV 8.2 fl (7.5-11.1) D 09/25/17 05:50 Sodium 141 mmol/L (136-145) 09/25/17 05:50 Potassium 4.0 mmol/L (3.5-5.1) 09/25/17 05:50 Chloride 107 mmol/L (98-107) 09/25/17 05:50 Carbon Dioxide 26 mmol/L (21-32) 09/25/17 05:50 Anion Gap 8 (8-16) 09/25/17 05:50 BUN 12 mg/dL (7-18) 09/25/17 05:50 Creatinine 0.7 mg/dL (0.55-1.02) 09/25/17 05:50 Creat Clearance w eGFR > 60 (>60) 09/25/17 05:50 Random Glucose 193 mg/dL (74-106) H 09/25/17 05:50 Calcium 8.1 mg/dL (8.5-10.1) L 09/25/17 05:50 Total Bilirubin 2.4 mg/dL (0.2-1.0) H D 09/25/17 05:50 AST 64 U/L (15-37) H 09/25/17 05:50 ALT 50 U/L (12-78) 09/25/17 05:50 Alkaline Phosphatase 171 U/L (45-117) H 09/25/17 05:50 Total Protein 7.0 g/dl (6.4-8.2) 09/25/17 05:50 Albumin 3.0 g/dl (3.4-5.0) L 09/25/17 05:50 Urine Color Quiana 09/24/17 15:10 Urine Appearance Cloudy 09/24/17 15:10 Urine pH 7.0 (5.0-8.0) D 09/24/17 15:10 Ur Specific [place] 1.017 (1.001-1.035) 09/24/17 15:10 Urine Protein Negative (NEGATIVE) 09/24/17 15:10 Urine Glucose (UA) Negative (NEGATIVE) 09/24/17 15:10 Urine Ketones Negative (NEGATIVE) 09/24/17 15:10 Urine Blood Negative (NEGATIVE) 09/24/17 15:10 Urine Nitrite Negative (NEGATIVE) 09/24/17 15:10 Urine Bilirubin Negative (<2.0 mg/dL) 09/24/17 15:10 Urine Urobilinogen 4.0 e.u/dl mg/dL (0.2-1.0) H 09/24/17 15:10 Ur Leukocyte Esterase Negative (NEGATIVE) 09/24/17 15:10 RPR Titer Nonreactive (NONREACTIVE) 09/25/17 05:50 HIV 1&2 Antibody Screen Negative 09/25/17 05:50 HIV P24 Antigen Negative 09/25/17 05:50 labs noted Assessment: 09/26/17 14:07 withdrawal sx Plan: continue detox increase hydration vistaril for agitation
[2017-09-26] MEDS: hydrOXYzine PAMOATE 25 MG CAPSULE (FP) PO PRN (14:41)
[2017-09-26] MEDS ORDERED: chlordiazePOXIDE 5 MG CAPSULE PO SCH (17:00)
--- NOTE | 2017-09-26 20:23 | PN ---
[facility] Progress Note Note: Was called to the floor for pt's fall. Per pt, she fell and landed on her buttock. Denies hitting her head nor any other part of her body. Pt noted to be A & O x 3, a little sluggish, no signs of injury. Fall was not witnessed. Pt declined ED visit because she was earlier sent for post fall eval. Educated pt to reduce ambulation. VS - 129/71, 102, 98.2, 17. FS - 164mg/dl Denies chest pains, dizziness. ammonium level ordered
--- NOTE | 2017-09-26 20:31 | PN ---
[facility] Progress Note Note: Librium 10pm dose put on hold
[2017-09-26] MEDS: THIAMINE HCL 100 MG TABLET (FP) PO SCH (22:28)
[2017-09-26] MEDS: MIRTAZAPINE 15 MG TABLET (FP) PO SCH (22:28)
[2017-09-27] MEDS ORDERED: IBUPROFEN 400 MG TABLET (FP) PO PRN (10:14)
[2017-09-27] MEDS: OLANZapine 10 MG TABLET PO SCH (10:25)
[2017-09-27] MEDS: METHADONE HCL 5 MG TABLET (FOR DETOX USE ONLY) PO SCH (10:25)
[2017-09-27] MEDS: FUROSEMIDE 20 MG TABLET (FP) PO SCH (10:25)
[2017-09-27] MEDS: SPIRONOLACTONE 25 MG TABLET (FP) PO SCH (10:25)
[2017-09-27] MEDS: PRENATAL VITAMINS W/ FOLIC ACID TABLET (FP) PO SCH (10:25)
[2017-09-27] MEDS: hydrOXYzine PAMOATE 25 MG CAPSULE (FP) PO PRN (10:28)
--- NOTE | 2017-09-27 10:49 | PN ---
[facility] Progress Note (SOAP) Subjective: headaches back pain sweats Objective: 09/27/17 10:48 Vital Signs Temperature 98.1 F 09/27/17 07:35 Pulse Rate 99 H 09/27/17 07:35 Respiratory Rate 18 09/27/17 07:35 Blood Pressure 135/87 09/27/17 07:35 O2 Sat by Pulse Oximetry (%) aaox3 ambulating no acute distress Assessment: 09/27/17 10:48 withdrawal sx Plan: continue detox increase fluids motrin 800 mg prn lidocaine patch daily
[2017-09-27] MEDS ORDERED: LIDOCAINE 5% TOPICAL PATCH TP ONE (11:45)
[2017-09-27] MEDS: VITAMINS A AND D TOPICAL OINTMENT 60 GM TUBE TP SCH ×3 (13:00→23:02)
[2017-09-27] MEDS: LACTULOSE 20 GM/30 ML UDC (FOR ORAL USE ONLY) PO SCH ×2 (15:51→22:19)
[2017-09-27] MEDS: chlordiazePOXIDE HCL 10 MG CAPSULE PO SCH ×2 (18:11→22:19)
[2017-09-27] MEDS: THIAMINE HCL 100 MG TABLET (FP) PO SCH (22:19)
[2017-09-27] MEDS: MIRTAZAPINE 15 MG TABLET (FP) PO SCH (22:19)
[2017-09-27] MEDS: LIDOCAINE PATCH REMOVAL MC SCH (22:23)
[2017-09-28] MEDS: hydrOXYzine PAMOATE 25 MG CAPSULE (FP) PO PRN ×3 (00:45→22:32)
[2017-09-28] MEDS ORDERED: TRIMETHOBENZAMIDE HCL 200MG/2ML INJ IM ONE (00:58)
--- NOTE | 2017-09-28 01:03 | PN ---
[facility] Progress Note Note: I was notified by nurse, Eleanor Alen Amezcua that patient vomited x 3. Vital Signs Temperature 98.2 F 09/27/17 23:10 Pulse Rate 102 H 09/27/17 23:10 Respiratory Rate 18 09/27/17 23:10 Blood Pressure 118/59 09/27/17 23:10 O2 Sat by Pulse Oximetry (%) Laboratory Last Values WBC 4.4 K/mm3 (4.0-10.0) 09/25/17 05:50 RBC 3.88 M/mm3 (3.60-5.2) 09/25/17 05:50 Hgb 13.2 GM/dL (10.7-15.3) D 09/25/17 05:50 Hct 38.5 % (32.4-45.2) 09/25/17 05:50 MCV 99.2 fl (80-96) H 09/25/17 05:50 MCH 33.9 pg (25.7-33.7) H 09/25/17 05:50 MCHC 34.2 g/dl (32.0-36.0) 09/25/17 05:50 RDW 14.2 % (11.6-15.6) 09/25/17 05:50 Plt Count 86 K/MM3 (134-434) L D 09/25/17 05:50 MPV 8.2 fl (7.5-11.1) D 09/25/17 05:50 Sodium 141 mmol/L (136-145) 09/25/17 05:50 Potassium 4.0 mmol/L (3.5-5.1) 09/25/17 05:50 Chloride 107 mmol/L (98-107) 09/25/17 05:50 Carbon Dioxide 26 mmol/L (21-32) 09/25/17 05:50 Anion Gap 8 (8-16) 09/25/17 05:50 BUN 12 mg/dL (7-18) 09/25/17 05:50 Creatinine 0.7 mg/dL (0.55-1.02) 09/25/17 05:50 Creat Clearance w eGFR > 60 (>60) 09/25/17 05:50 POC Glucometer 164 UNITS (80-120) 09/26/17 20:13 Random Glucose 193 mg/dL (74-106) H 09/25/17 05:50 Calcium 8.1 mg/dL (8.5-10.1) L 09/25/17 05:50 Total Bilirubin 2.4 mg/dL (0.2-1.0) H D 09/25/17 05:50 AST 64 U/L (15-37) H 09/25/17 05:50 ALT 50 U/L (12-78) 09/25/17 05:50 Alkaline Phosphatase 171 U/L (45-117) H 09/25/17 05:50 Ammonia 92.80 umol/L (11-32) H 09/27/17 08:00 Total Protein 7.0 g/dl (6.4-8.2) 09/25/17 05:50 Albumin 3.0 g/dl (3.4-5.0) L 09/25/17 05:50 Urine Color Qu[place] 09/24/17 15:10 Urine Appearance Cloudy 09/24/17 15:10 Urine pH 7.0 (5.0-8.0) D 09/24/17 15:10 Ur Specific [place] 1.017 (1.001-1.035) 09/24/17 15:10 Urine Protein Negative (NEGATIVE) 09/24/17 15:10 Urine Glucose (UA) Negative (NEGATIVE) 09/24/17 15:10 Urine Ketones Negative (NEGATIVE) 09/24/17 15:10 Urine Blood Negative (NEGATIVE) 09/24/17 15:10 Urine Nitrite Negative (NEGATIVE) 09/24/17 15:10 Urine Bilirubin Negative (<2.0 mg/dL) 09/24/17 15:10 Urine Urobilinogen 4.0 e.u/dl mg/dL (0.2-1.0) H 09/24/17 15:10 Ur Leukocyte Esterase Negative (NEGATIVE) 09/24/17 15:10 RPR Titer Nonreactive (NONREACTIVE) 09/25/17 05:50 HIV 1&2 Antibody Screen Negative 09/25/17 05:50 HIV P24 Antigen Negative 09/25/17 05:50
--- NOTE | 2017-09-28 01:07 | PN ---
S Progress Note Note: I was notified by nurse, Ms. Alen Amezcua that patient vomited x 3. Vital Signs Temperature 98.2 F 09/27/17 23:10 Pulse Rate 102 H 09/27/17 23:10 Respiratory Rate 18 09/27/17 23:10 Blood Pressure 118/59 09/27/17 23:10 O2 Sat by Pulse Oximetry (%) Action: Tigan 200mg intramuscular ordered.
[2017-09-28] MEDS: LACTULOSE 20 GM/30 ML UDC (FOR ORAL USE ONLY) PO SCH ×3 (06:18→22:30)
[2017-09-28] MEDS: VITAMINS A AND D TOPICAL OINTMENT 60 GM TUBE TP SCH ×4 (06:19→23:51)
[2017-09-28] MEDS: chlordiazePOXIDE HCL 10 MG CAPSULE PO SCH ×2 (06:19→10:14)
[2017-09-28] MEDS ORDERED: METHADONE HCL 10 MG TABLET (FOR DETOX USE ONLY) PO SCH (10:00)
[2017-09-28] MEDS ORDERED: LIDOCAINE 5% TOPICAL PATCH TP SCH (10:00)
[2017-09-28] MEDS: FUROSEMIDE 20 MG TABLET (FP) PO SCH (10:11)
[2017-09-28] MEDS: SPIRONOLACTONE 25 MG TABLET (FP) PO SCH (10:11)
[2017-09-28] MEDS: PRENATAL VITAMINS W/ FOLIC ACID TABLET (FP) PO SCH (10:11)
[2017-09-28] MEDS: OLANZapine 10 MG TABLET PO SCH (10:11)
--- NOTE | 2017-09-28 10:23 | PN ---
[facility] Progress Note (SOAP) Subjective: ALERT,ORIENTED X 3,VOMITING THIS AM,INTERRUPTED SLEEP,ON LACTULOSE FOR HIGH AMMONIA LEVEL Objective: 09/28/17 10:23 Vital Signs Temperature 98.6 F 09/28/17 09:51 Pulse Rate 106 H 09/28/17 09:51 Respiratory Rate 20 09/28/17 09:51 Blood Pressure 133/97 09/28/17 09:51 O2 Sat by Pulse Oximetry (%) Laboratory Results - last 24 hr 09/27/17 08:00 Ammonia 92.80 H Assessment: 09/28/17 10:23 WITHDRAWAL SYMPTOM Plan: CONTINUE DETOX,TIGAN 200 MGS IM Q 8HRS PRN FOR VOMITING,CONTINUE LACTULOSE 20 GRAMS PO TID, REPEAT AMMONIA LEVEL PENDING,POSSIBLE DISCHARGE IN AM,PSYCHIATRIC REEVALUATION BY PATIENT REQUEST
[2017-09-28] MEDS: TRIMETHOBENZAMIDE HCL 200MG/2ML INJ IM PRN ×2 (10:51→23:59)
--- NOTE | 2017-09-28 14:49 | PN ---
Psychiatric Progress Note Vital Signs: Vital Signs Period Temp Pulse Resp BP Sys/Talavera Pulse Ox Last 24 Hr 97.9 F-98.6 F 96-116 16-20 106-133/59-97 Date of Session: 09/28/17 Chief Complaint:: Oversedated HPI: As per nursing report patient is oversedated after taking her medications, current medications are: Zyprexa 10mg pop qd. Ambien 10mg po qhs. Remeron 15mg po qhs Current Medications: Active Medications Generic Name Dose Route Start Last Admin Trade Name Freq PRN Reason Stop Dose Admin Al Hydroxide/Mg Hydroxide 30 ml 09/24/17 13:29 Mylanta Oral Suspension - PO Q6H PRN DYSPEPSIA Eucalyptus/Menthol/Phenol/Sorbitol 1 each 09/24/17 13:29 Cepastat Lozenge - MM Q4H PRN SORE THROAT Furosemide 20 mg 09/24/17 14:35 09/28/17 10:11 Lasix - PO 20 mg DAILY STACIE Administration Guaifenesin 10 ml 09/24/17 13:29 Robitussin Dm - PO Q6H PRN COUGH Hydroxyzine Pamoate 25 mg 09/26/17 14:02 09/28/17 00:45 Vistaril - PO 25 mg Q4H PRN Administration FOR ITCHING Ibuprofen 800 mg 09/27/17 10:14 Motrin - PO Q8H PRN PAIN LEVEL 4-6 Lactulose 20 gm 09/27/17 15:45 09/28/17 13:59 Cephulac (Oral Use) PO 20 gm TID STACIE Administration Lidocaine 1 patch 09/28/17 10:00 09/28/17 10:51 Lidoderm Patch - TP 1 patch DAILY STACIE Administration Loperamide HCl 4 mg 09/24/17 13:29 Imodium - PO Q6H PRN DIARRHEA Magnesium Citrate 300 ml 09/24/17 13:29 Citroma - PO Q48H PRN CONSTIPATION Magnesium Hydroxide 30 ml 09/24/17 13:29 Milk Of Magnesia - PO DAILY PRN CONSTIPATION Melatonin 5 mg 09/24/17 22:00 Melatonin PO HS PRN INSOMNIA Methadone HCl 5 mg 09/29/17 06:00 Dolophine - PO 09/29/17 06:01 DAILY@0600 STACIE Mirtazapine 15 mg 09/25/17 22:00 09/27/17 22:19 Remeron - PO 15 mg HS STACIE Administration Miscellaneous 1 each 09/27/17 22:00 09/27/17 22:23 Lidoderm Patch Removal MC Not Given DAILY@2200 STACIE Olanzapine 10 mg 09/26/17 10:00 09/28/17 10:11 Zyprexa - PO 10 mg DAILY STACIE Administration Multivit/Folic Acid/Iron 1 tab 09/25/17 10:00 09/28/17 10:11 Vitamins (Sjr) - PO 1 tab DAILY STACIE Administration Pseudoephedrine/Triprolidine 1 combo 09/24/17 13:29 Actifed - PO TID PRN NASAL CONGESTION Spironolactone 50 mg 09/24/17 14:45 09/28/17 10:11 Aldactone - PO 50 mg DAILY STACIE Administration Thiamine HCl 100 mg 09/24/17 22:00 09/27/17 22:19 Vitamin B1 - PO 100 mg HS STACIE Administration Trimethobenzamide HCl 200 mg 09/28/17 10:34 09/28/17 10:51 Tigan Injection - IM 200 mg Q8H PRN Administration NAUSEA AND/OR VOMITING Vitamin A/Vitamin D 1 applic 09/27/17 12:00 09/28/17 13:00 Vitamin A & D Top Oint - TP 1 applic Q6HPO STACIE Administration Zolpidem Tartrate 10 mg 09/25/17 22:00 09/25/17 22:18 Ambien - PO 09/28/17 21:59 10 mg HS PRN Administration INSOMNIA Medication(s) Change(s): Switch Zypreza to 10 mg po qhs Provider note:: Patient Ammonia was high on 09/27-92,8, last Ammopnia is 66,26. Hold psychiatric medications until Ammonia level is less then 45 Mental Status Exam - Mental Status Exam Alert and Oriented to: Person Cognitive Function: Fair Patient Appearance: Unkempt Mood: Sad Affect: Flat Patient Behavior: Cooperative Speech Pattern: Delayed Voice Loudness: Mildly Soft/Quiet Thought Process: Goal Oriented Thought Disorder: Being Controlled Hallucinations: Denies Suicidal Ideation: Denies Homicidal Ideation: Denies Insight/Judgement: Fair Sleep: Difficulty falling asleep Appetite: Weight gain Muscle strength/Tone: Mild Hypotonicity Gait/Station: Deferred Additional Comments: Hold psychiatric medications until Ammonia level below 45, current Ammonia 66,26 Psychiatric Treatment Plan - Problem List (1) Cocaine dependence Current Visit: Yes Qualifiers: Substance use status: uncomplicated Qualified Code(s): F14.20 - Cocaine dependence, uncomplicated (2) Opioid dependence on agonist therapy Current Visit: Yes (3) Opioid dependence with withdrawal Current Visit: Yes (4) Alcohol dependence with uncomplicated withdrawal Current Visit: No (5) Bipolar disorder Current Visit: No (6) Substance induced mood disorder Current Visit: No (7) Alcohol dependence Current Visit: No Qualifiers: Substance use status: uncomplicated Qualified Code(s): F10.20 - Alcohol dependence, uncomplicated (8) Cocaine abuse Current Visit: No (9) Opioid dependence Current Visit: No Initial treatment plan: Hold psychiatric medications until Ammonia blood level level below 45, current Ammonia 66,26. Ammonia level in am. Restart Zyprexa n5mg po qhs if Ammonia drops below 45
[2017-09-28] MEDS ORDERED: OLANZapine 5 MG TABLET PO SCH (22:00)
[2017-09-28] MEDS ORDERED: OLANZapine 10 MG TABLET PO SCH (22:00)
[2017-09-28] MEDS: MIRTAZAPINE 15 MG TABLET (FP) PO SCH (22:30)
[2017-09-28] MEDS: THIAMINE HCL 100 MG TABLET (FP) PO SCH (22:30)
[2017-09-28] MEDS: LIDOCAINE PATCH REMOVAL MC SCH (22:31)
[2017-09-29] MEDS: hydrOXYzine PAMOATE 25 MG CAPSULE (FP) PO PRN (01:33)
[2017-09-29] MEDS ORDERED: METHADONE HCL 5 MG TABLET (FOR DETOX USE ONLY) PO SCH (06:00)
[2017-09-29] MEDS: LACTULOSE 20 GM/30 ML UDC (FOR ORAL USE ONLY) PO SCH (06:09)
[2017-09-29] MEDS: VITAMINS A AND D TOPICAL OINTMENT 60 GM TUBE TP SCH (06:11)
[2017-09-29 06:46] VITALS: TEMP 98.1
--- NOTE | 2017-09-29 08:03 | PN ---
[facility] Progress Note (SOAP) Subjective: ALERT,NO COMPLAINT Objective: 09/29/17 08:01 Vital Signs Temperature 98.1 F 09/29/17 06:46 Pulse Rate 107 H 09/29/17 06:46 Respiratory Rate 20 09/29/17 06:46 Blood Pressure 144/79 09/29/17 06:46 O2 Sat by Pulse Oximetry (%) Laboratory Results - last 24 hr 09/28/17 07:00 Ammonia 66.26 H Assessment: 09/29/17 08:01 DETOX COMPLETED,NO WITHDRAWAL SYMPTOM REPEAT AMMONIA LEVEL IS 66.26 Plan: DISCHARGE TODAY,FOLLOW UP WITH AFTER CARE PROGRAM ARRANGEMENT
--- NOTE | 2017-09-29 08:09 | DS ---
[facility] Detox Discharge Summary Admission Date: 09/24/17 Discharge Date: 09/29/17 - History Present History: Alcohol Dependence, Cocaine Dependence, Opioid Dependence Additional Comments: FOLLOW UP WITH AFTER CARE PROGRAM ARRANGEMENT Pertinent Past History: CIRRHOSIS OF LIVER HEPATITIS C NICOTINE DEPENDENCE BIPOLAR DISORDER DEPRESSION - Physical Exam Results Vital Signs: Vital Signs Temperature 98.1 F 09/29/17 06:46 Pulse Rate 107 H 09/29/17 06:46 Respiratory Rate 20 09/29/17 06:46 Blood Pressure 144/79 09/29/17 06:46 O2 Sat by Pulse Oximetry (%) Pertinent Admission Physical Exam Findings: WITHDRAWAL SIGNS AND SYMPTOM Laboratory Last Values WBC 4.4 K/mm3 (4.0-10.0) 09/25/17 05:50 RBC 3.88 M/mm3 (3.60-5.2) 09/25/17 05:50 Hgb 13.2 GM/dL (10.7-15.3) D 09/25/17 05:50 Hct 38.5 % (32.4-45.2) 09/25/17 05:50 MCV 99.2 fl (80-96) H 09/25/17 05:50 MCH 33.9 pg (25.7-33.7) H 09/25/17 05:50 MCHC 34.2 g/dl (32.0-36.0) 09/25/17 05:50 RDW 14.2 % (11.6-15.6) 09/25/17 05:50 Plt Count 86 K/MM3 (134-434) L D 09/25/17 05:50 MPV 8.2 fl (7.5-11.1) D 09/25/17 05:50 Sodium 141 mmol/L (136-145) 09/25/17 05:50 Potassium 4.0 mmol/L (3.5-5.1) 09/25/17 05:50 Chloride 107 mmol/L (98-107) 09/25/17 05:50 Carbon Dioxide 26 mmol/L (21-32) 09/25/17 05:50 Anion Gap 8 (8-16) 09/25/17 05:50 BUN 12 mg/dL (7-18) 09/25/17 05:50 Creatinine 0.7 mg/dL (0.55-1.02) 09/25/17 05:50 Creat Clearance w eGFR > 60 (>60) 09/25/17 05:50 POC Glucometer 164 UNITS (80-120) 09/26/17 20:13 Random Glucose 193 mg/dL (74-106) H 09/25/17 05:50 Calcium 8.1 mg/dL (8.5-10.1) L 09/25/17 05:50 Total Bilirubin 2.4 mg/dL (0.2-1.0) H D 09/25/17 05:50 AST 64 U/L (15-37) H 09/25/17 05:50 ALT 50 U/L (12-78) 09/25/17 05:50 Alkaline Phosphatase 171 U/L (45-117) H 09/25/17 05:50 Ammonia 66.26 umol/L (11-32) H 09/28/17 07:00 Total Protein 7.0 g/dl (6.4-8.2) 09/25/17 05:50 Albumin 3.0 g/dl (3.4-5.0) L 09/25/17 05:50 Urine Color [place] 09/24/17 15:10 Urine Appearance Cloudy 09/24/17 15:10 Urine pH 7.0 (5.0-8.0) D 09/24/17 15:10 Ur Specific [place] 1.017 (1.001-1.035) 09/24/17 15:10 Urine Protein Negative (NEGATIVE) 09/24/17 15:10 Urine Glucose (UA) Negative (NEGATIVE) 09/24/17 15:10 Urine Ketones Negative (NEGATIVE) 09/24/17 15:10 Urine Blood Negative (NEGATIVE) 09/24/17 15:10 Urine Nitrite Negative (NEGATIVE) 09/24/17 15:10 Urine Bilirubin Negative (<2.0 mg/dL) 09/24/17 15:10 Urine Urobilinogen 4.0 e.u/dl mg/dL (0.2-1.0) H 09/24/17 15:10 Ur Leukocyte Esterase Negative (NEGATIVE) 09/24/17 15:10 RPR Titer Nonreactive (NONREACTIVE) 09/25/17 05:50 HIV 1&2 Antibody Screen Negative 09/25/17 05:50 HIV P24 Antigen Negative 09/25/17 05:50 - Treatment Hospital Course: Detox Protocol Followed, Detoxed Safely, Responded well, Discharged Condition Good, Rehab Referral Accepted Patient has Accepted a Rehab Referral to: [facility] - Medication Discharge Medications: Ambulatory Orders Olanzapine [Zyprexa -] 10 mg PO DAILY 02/10/17 Zolpidem Tartrate [Ambien] 10 mg PO HS 02/10/17 Furosemide 20 mg PO DAILY 09/24/17 Mirtazapine 30 mg PO HS 09/24/17 Spironolactone 50 mg PO DAILY 09/24/17 Mirtazapine [Remeron -] 15 mg PO HS #30 tablet 09/26/17 Olanzapine [Zyprexa -] 10 mg PO DAILY #30 tablet 09/26/17 - Diagnosis (1) Opioid dependence with withdrawal Current Visit: Yes Status: Acute (2) Alcohol dependence with uncomplicated withdrawal Current Visit: No Status: Acute (3) History of bipolar disorder Current Visit: Yes Status: Acute (4) Cirrhosis Current Visit: Yes Status: Chronic Qualifiers: Hepatic cirrhosis type: alcoholic cirrhosis Ascites presence: with ascites Qualified Code(s): K70.31 - Alcoholic cirrhosis of liver with ascites (5) Cocaine dependence Current Visit: Yes Status: Acute Qualifiers: Substance use status: uncomplicated Qualified Code(s): F14.20 - Cocaine dependence, uncomplicated (6) Hepatitis C Current Visit: Yes Status: Chronic Qualifiers: Viral hepatitis chronicity: chronic Hepatic coma status: without hepatic coma Qualified Code(s): B18.2 - Chronic viral hepatitis C (7) Nicotine dependence Current Visit: No Status: Acute Qualifiers: (8) History of depression Current Visit: Yes Status: Suspected (9) Increased ammonia level Current Visit: Yes Status: Acute - AMA Did Patient Leave Against Medical Advice: No
[2017-09-29 09:10] VITALS: BP 128/69; PULSE 106
[2017-09-29] MEDS: PRENATAL VITAMINS W/ FOLIC ACID TABLET (FP) PO SCH (10:51)
[2017-09-29] MEDS: SPIRONOLACTONE 25 MG TABLET (FP) PO SCH (10:51)
[2017-09-29] MEDS: FUROSEMIDE 20 MG TABLET (FP) PO SCH (10:51)
== END 2017-09-29 10:50 | disposition home or self-care (01) | DRG 773 ==
LOC: YASAS 09:23 → Y6N 14:01
PROVIDERS: ADMIT Surgery; ATTEND Surgery
PROC: HZ2ZZZZ Detoxification Services for Substance Abuse Treatment (ICD-10-PCS; principal; 2017-09-24)
DX: F11.23 Opioid dependence with withdrawal (principal); F10.230 Alcohol dependence with withdrawal, uncomplicated; F14.20 Cocaine dependence, uncomplicated; F17.213 Nicotine dependence, cigarettes, with withdrawal; F19.24 Other psychoactive substance dependence with psychoactive substance-induced mood disorder; F31.9 Bipolar disorder, unspecified; B18.2 Chronic viral hepatitis C; K70.31 Alcoholic cirrhosis of liver with ascites; Z86.2 Personal history of diseases of the blood and blood-forming organs and certain disorders involving the immune mechanism; Z91.5 Personal history of self-harm; E72.20 Disorder of urea cycle metabolism, unspecified
CPT/HCPCS: 36415; 80053; 81003; 82140; 82962; 85027; 86593; 87389; 93005; 93010

== ENCOUNTER 2017-09-26 03:28 | Emergency (ER) | payer OTHER ==
--- NOTE | 2017-09-26 03:32 | PDOC ---
History of Present Illness <Jesusita Acosta - Last Filed: 09/26/17 06:20> - General History Source: Patient, EMS, Other ([facility] Physician) Exam Limitations: No Limitations - History of Present Illness Initial Comments: 09/26/17 03:31 The patient is a 52F with a PMH of polysubstance abuse (cocaine, alcohol, and heroine) who presents to the ER after falling at [facility]. Per the physician there, a nurse heard her fall and the patient states that she hit her head and it is their protocol to send the patient for evaluation. The patient states that she was reaching to put her bed rail up, then rolled off the bed and hit her head on the dresser on her way down. She is not sure if she lost consciousness or not. She states that she may have bit her tongue and urinated on herself "a little". She denies any acute complaints except for a headache. <Jeff Samano - Last Filed: 09/26/17 06:28> - General Chief Complaint: Injury Stated Complaint: FALL Time Seen by Provider: 09/26/17 03:30 Past History <Jesusita Acosta - Last Filed: 09/26/17 06:20> - Past Medical History Anemia: Yes (Iron-Deficiency type, med. in past, none currently.) Asthma: No Cancer: No Cardiac Disorders: No CVA: No COPD: No CHF: No Dementia: No Diabetes: No GI Disorders: No Disorders: No HTN: No Hypercholesterolemia: No Kidney Stones: No Liver Disease: Yes (cirrhosis, ascites; Hep C (no treatment yet).) Seizures: No Thyroid Disease: No - Surgical History Abdominal Surgery: Yes (ASCITES; FLUID DRAINED, 2014) Appendectomy: No Cardiac Surgery: No Cholecystectomy: No Lung Surgery: No Neurologic Surgery: No Orthopedic Surgery: No - Reproductive History PID: No - Suicide/Smoking/Psychosocial Hx Smoking History: Current every day smoker Have you smoked in the past 12 months: Yes Number of Cigarettes Smoked Daily: 10 Cigars Per Day: 0 'Breaking Loose' booklet given: 09/24/17 (GIVEN TO PATIENT.) Hx Alcohol Use: Yes Drug/Substance Use Hx: Yes Substance Use Type: Alcohol, Cocaine, Heroin Hx Substance Use Treatment: Yes (Previous Detox admissions at [facility] (Last: 2016).) <Jeff Samano - Last Filed: 09/26/17 06:28> - Past Medical History Allergies/Adverse Reactions: Allergies Allergy/AdvReac Type Severity Reaction Status Date / Time No Known Allergies Allergy Verified 09/26/17 03:30 Home Medications: Ambulatory Orders Olanzapine [Zyprexa -] 10 mg PO DAILY 02/10/17 Zolpidem Tartrate [Ambien] 10 mg PO HS 02/10/17 Furosemide 20 mg PO DAILY 09/24/17 Mirtazapine 30 mg PO HS 09/24/17 Spironolactone 50 mg PO DAILY 09/24/17 Review of Systems - Review of Systems Able to Perform ROS?: Yes Comments:: 09/26/17 05:39 GENERAL/CONSTITUTIONAL: Positive for fall. No fever or chills. No weakness. HEAD, EYES, EARS, NOSE AND THROAT: No change in vision. No ear pain or discharge. No sore throat. CARDIOVASCULAR: No chest pain, palpitations, or lightheadedness. RESPIRATORY: No cough, wheezing, shortness of breath, or hemoptysis. GASTROINTESTINAL: No nausea, vomiting, diarrhea, constipation, or abdominal pain. GENITOURINARY: No dysuria, frequency, hematuria, or change in urination. MUSCULOSKELETAL: No joint or muscle swelling or pain. No neck or back pain. SKIN: No rash or lesions. NEUROLOGIC: Positive for possible LOC and headache. No numbness, tingling, weakness, or change in strength/sensation. ENDOCRINE: No increased thirst. No abnormal weight change. HEMATOLOGIC/LYMPHATIC: No anemia, easy bleeding, or history of blood clots. ALLERGIC/IMMUNOLOGIC: No hives or skin allergy. 09/26/17 05:40 Is the patient limited Vincentian proficient: No <Jeff Samano - Last Filed: 09/26/17 06:28> *Physical Exam - Vital Signs Last Vital Signs Temp Pulse Resp BP Pulse Ox 98.1 F 97 H 18 110/75 99 09/26/17 03:30 09/26/17 03:30 09/26/17 03:30 09/26/17 03:30 09/26/17 03:30 <Jesusita Acosta - Last Filed: 09/26/17 06:20> - Physical Exam Comments: 09/26/17 05:40 GENERAL: Well developed, well nourished. Awake and alert. No acute distress. HEENT: Normocephalic, atraumatic. Hearing grossly normal. Moist mucous membranes. PERRLA, EOMI. No conjunctival pallor. Sclera are non-icteric. Oropharynx is clear. NECK: Supple. Full ROM. CARDIOVASCULAR: Regular rate and rhythm. No murmurs, rubs, or gallops. PULMONARY: No evidence of respiratory distress. Lungs clear to auscultation bilaterally. No wheezing, rales or rhonchi. ABDOMINAL: Soft. Non-tender. Non-distended. No rebound or guarding. GENITOURINARY: No CVA tenderness bilaterally. MUSCULOSKELETAL: Normal range of motion at all joints. No bony deformities or tenderness. EXTREMITIES: No cyanosis. No clubbing. No edema. No calf tenderness or swelling. SKIN: Warm and dry. Normal capillary refill. No rashes. No jaundice. NEUROLOGICAL: Alert, awake, appropriate. Cranial nerves 2-12 intact. No deficits to light touch and temperature in face, upper extremities and lower extremities. No motor deficits in the in face, upper extremities and lower extremities. Normal speech. Gait is normal without ataxia. PSYCHIATRIC: Cooperative. Good eye contact. Appropriate mood and affect. <Jeff Samano - Last Filed: 09/26/17 06:28> ED Treatment Course - LABORATORY CBC & Chemistry Diagram: 09/26/17 03:55 09/26/17 03:55 - ADDITIONAL ORDERS Additional order review: Laboratory Results 09/26/17 09/26/17 09/26/17 04:26 04:26 03:55 Sodium 142 Potassium 3.9 Chloride 112 H Carbon Dioxide 26 Anion Gap 4 L BUN 9 Creatinine 0.6 Creat Clearance w eGFR > 60 Random Glucose 82 Calcium 8.9 Total Bilirubin 2.9 H D AST 61 H ALT 50 Alkaline Phosphatase 176 H Total Protein 7.6 Albumin 3.2 L Urine Color [place]ky[place] Urine Appearance Clear Urine pH 7.0 Ur Specific [place] 1.012 Urine Protein Negative Urine Glucose (UA) Negative Urine Ketones Negative Urine Blood Negative Urine Nitrite Negative Urine Bilirubin Negative Urine Urobilinogen 4.0 e.u/dl H Ur Leukocyte Esterase Negative Urine HCG, Qual Negative 09/26/17 03:55 RBC 4.24 MCV 97.3 H MCHC 34.1 RDW 14.3 MPV 9.1 D Neutrophils % 55.4 D Lymphocytes % 33.4 D Monocytes % 7.9 Eosinophils % 2.5 Basophils % 0.8 <Jesusita Acosta - Last Filed: 09/26/17 06:20> - LABORATORY CBC & Chemistry Diagram: 09/26/17 03:55 09/26/17 03:55 <Ariella Samanoony - Last Filed: 09/26/17 06:28> Medical Decision Making - Medical Decision Making 09/26/17 05:43 The patient is a 52F with a PMH of polysubstance abuse who presents after having an unwitnessed fall. Will order basic labs to r/o electrolyte imbalance and infectious process. Pending CXR and CTH. 09/26/17 05:52 CBC, CMP, UA negative. CTH negative. Will inform pt and d/c home. <Jeff Samano - Last Filed: 09/26/17 06:28> *DC/Admit/Observation/Transfer - Discharge Dispostion Decision to Admit order: No <Jesusita Acosta - Last Filed: 09/26/17 06:20> - Discharge Dispostion Decision to Admit order: No <Ariella Samanoony - Last Filed: 09/26/17 06:28> Diagnosis at time of Disposition: Opioid dependence, Bipolar disorder, Alcohol dependence with uncomplicated withdrawal, Substance induced mood disorder, Cocaine abuse, Nicotine dependence - Discharge Dispostion Disposition: HOME Condition at time of disposition: Improved - Patient Instructions Printed Discharge Instructions: How to Prevent Falls Additional Instructions: Please follow up with your primary care physician in 2-3 days. Please return to the ER if you have any signs or symptoms of chest pain, shortness of breath, uncontrollable fever, chills, nausea, vomiting, numbness, tingling, or weakness in any part of your body, changes in vision, or slurred speech. Please return to the ER if symptoms persist, worsen, or new symptoms arise.
[2017-09-26 03:37] VITALS: BMI 28.0
[2017-09-26 04:06] LABS: BASO % 0.8 % (0-2.0); EOS % 2.5 % (0-4.5); HEMATOCRIT 41.2 % (32.4-45.2); LYMPH % 33.4 % (8-40); MCH 33.1 pg (25.7-33.7); MCHC 34.1 g/dl (32.0-36.0); MEAN CELL VOLUME 97.3 fl (80-96); MEAN PLT VOLUME 9.1 fl (7.5-11.1); MONO % 7.9 % (3.8-10.2); NEUT % 55.4 % (42.8-82.8); PLATELET COUNT 80 K/MM3 (134-434); RBC 4.24 M/mm3 (3.60-5.2); RDW 14.3 % (11.6-15.6); WHITE BLOOD COUNT 5.2 K/mm3 (4.0-10.0)
[2017-09-26 04:33] LABS: ALBUMIN 3.2 g/dl (3.4-5.0); ALK PHOS 176 U/L (45-117); ANION GAP 4 (8-16); BILIRUBIN,TOTAL 2.9 mg/dL (0.2-1.0); BLOOD UREA NITROGEN 9 mg/dL (7-18); CALCIUM 8.9 mg/dL (8.5-10.1); CHLORIDE 112 mmol/L (98-107); CO2 26 mmol/L (21-32); CREATININE 0.6 mg/dL (0.55-1.02); GLUCOSE,RANDOM 82 mg/dL (74-106); POTASSIUM 3.9 mmol/L (3.5-5.1); SGOT/AST 61 U/L (15-37); SGPT/ALT 50 U/L (12-78); SODIUM 142 mmol/L (136-145); TOT PROT 7.6 g/dl (6.4-8.2)
--- NOTE | 2017-09-26 04:41 | PDOC ---
Attending Attestation - Resident Resident Name: Jeff Samano - ED Attending Attestation I have performed the following: I have examined & evaluated the patient, The case was reviewed & discussed with the resident, I agree w/resident's findings & plan - HPI HPI: 09/26/17 04:40 Pt was getting detoxed at [facility] drug/alcohol facility, when she fell. She was sent to us for evaluation and clearance. - Physicial Exam PE: 09/26/17 05:09 Agree with resident exam - Medical Decision Making 09/26/17 05:09 Patient Name: TANIA MARTINEZ THIS IS A FINAL REPORT FROM IMAGING DIRECTOR DATA PROCESSING DATE OF SERVICE: 2017-09-26 04:36:35 IMAGES: 132 EXAM: HEAD CT WITHOUT CONTRAST HISTORY:Post fall COMPARISON: None. FINDINGS: Serial axial unenhanced images of the brain are provided. There are no prior exams for comparison at this time. There is no acute intra-or extra-axial mass or fluid collections. There is no intracranial hemorrhage or infarct. There is no midline shift or mass effect . There is no hydrocephalus. The brain parenchyma is intact. The skull is intact. The visualized paranasal sinuses are clear. The bilateral mastoid air cells are clear. IMPRESSION: NO ACUTE INTRACRANIAL ABNORMALITY. THIS DOCUMENT HAS BEEN ELECTRONICALLY SIGNED 09/26/17 06:39 PT IS STABLE AND SHE IS FEELING BETTER. SHE WILL BE SENT BY AMBULANCE BACK TO HER BED IN [facility].
[2017-09-26 05:34] LABS: URINE APPEARANCE CLEAR; URINE BILIRUBIN NEGATIVE (<2.0 mg/dL); URINE COLOR DKYELLOW; URINE GLUCOSE (UA) NEGATIVE (NEGATIVE); URINE KETONE NEGATIVE (NEGATIVE); URINE LEUK ESTERASE NEGATIVE (NEGATIVE); URINE NITRITE NEGATIVE (NEGATIVE); URINE PROTEIN NEGATIVE (NEGATIVE); URINE UROBILINOGEN 4.0 E.U/dl mg/dL (0.2-1.0)
[2017-09-26 09:03] VITALS: BP 116/68; PULSE 70; TEMP 97.6
== END 2017-09-26 09:03 | disposition home or self-care (01) ==
LOC: JER 03:28
DX: S09.8XXA Other specified injuries of head, initial encounter (principal); W06.XXXA Fall from bed, initial encounter; Y93.89 Activity, other specified; Y92.230 Patient room in hospital as the place of occurrence of the external cause; Y99.8 Other external cause status; F11.20 Opioid dependence, uncomplicated; F10.20 Alcohol dependence, uncomplicated; F14.20 Cocaine dependence, uncomplicated; F17.210 Nicotine dependence, cigarettes, uncomplicated
CPT/HCPCS: 36415; 70450-TC; 80053; 81003; 84703; 85025; 99281-25

== ENCOUNTER 2017-12-31 11:51 | Inpatient (IN) | payer OTHER ==
[2017-12-31 14:33] VITALS: BMI 28.0
[2017-12-31] MEDS ORDERED: IBUPROFEN 400 MG TABLET (FP) PO PRN (15:07)
[2017-12-31] MEDS ORDERED: MAGNESIUM CITRATE 300 ML BOTTLE PO PRN (15:07)
[2017-12-31] MEDS ORDERED: guaiFENesin/D-METHORPHAN HB 10 ML UNIT-DOSE CUPS PO PRN (15:07)
[2017-12-31] MEDS ORDERED: P-EPHED 60MG/TRIPROLIDI 2.5MG TABLET PO PRN (15:07)
[2017-12-31] MEDS ORDERED: MAG HYDROX/AL HYDROX/SIMETH 30 ML UNIT-DOSE CUP PO PRN (15:07)
[2017-12-31] MEDS ORDERED: MENTHOL/PHENOL 1 EACH UD MM PRN (15:07)
[2017-12-31] MEDS ORDERED: ACETAMINOPHEN 325 MG TABLET (FP) PO PRN (15:07)
[2017-12-31] MEDS ORDERED: MAGNESIUM HYDROX 2400MG/30ML ORAL SUSPENSION 30 ML CUP PO PRN (15:07)
[2017-12-31] MEDS ORDERED: LOPERAMIDE HCL 2 MG CAPSULE PO PRN (15:07)
--- NOTE | 2017-12-31 15:11 | HP ---
[facility] Re[facility] Assess/Revision - Admission History Admitted to Rehab from: [facility] [place] - Vital signs Vital Signs: Vital Signs Period Temp Pulse Resp BP Sys/Talavera Pulse Ox Last 24 Hr 97.7 F 97 18 109/76 - Findings Detox History & Physical reviewed: Yes Concur with findings: Yes Comments/Additional Findings: pt with cirrhosis
--- NOTE | 2017-12-31 15:19 | PN ---
S Progress Note Note: Called by nursing staff to order medication for newly admitted patient. Medication reconciliation done. Zyprexa 10 mg po daily and Remeron 15 mg po HS ordered
[2017-12-31] MEDS: MIRTAZAPINE 15 MG TABLET (FP) PO SCH (21:21)
[2017-12-31] MEDS: CYCLOBENZAPRINE HCL 5 MG TABLET PO SCH (21:21)
[2017-12-31] MEDS: THIAMINE HCL 100 MG TABLET (FP) PO SCH (21:21)
[2018-01-01] MEDS: MELATONIN 5 MG TABLETS PO PRN (00:27)
[2018-01-01] MEDS: CYCLOBENZAPRINE HCL 5 MG TABLET PO SCH ×3 (06:07→21:55)
[2018-01-01] MEDS: OLANZapine 10 MG TABLET PO SCH (10:35)
[2018-01-01] MEDS: NICOTINE 7 MG/24 HOURS TOPICAL PATCH TD SCH (10:35)
[2018-01-01] MEDS: PRENATAL VITAMINS W/ FOLIC ACID TABLET (FP) PO SCH (10:35)
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
[2018-01-01] MEDS: LACTULOSE 20 GM/30 ML UDC (FOR ORAL USE ONLY) PO SCH ×2 (14:40→21:55)
[2018-01-01] MEDS: DOXEPIN HCL 50 MG CAPSULE PO SCH (21:55)
[2018-01-01] MEDS: THIAMINE HCL 100 MG TABLET (FP) PO SCH (21:55)
[2018-01-01] MEDS: MIRTAZAPINE 15 MG TABLET (FP) PO SCH (21:55)
[2018-01-02] MEDS: MELATONIN 5 MG TABLETS PO PRN ×2 (00:34→21:51)
[2018-01-02] MEDS: CYCLOBENZAPRINE HCL 5 MG TABLET PO SCH ×3 (06:37→21:05)
[2018-01-02] MEDS: LACTULOSE 20 GM/30 ML UDC (FOR ORAL USE ONLY) PO SCH ×3 (06:38→21:04)
[2018-01-02] MEDS: OLANZapine 10 MG TABLET PO SCH (10:48)
[2018-01-02] MEDS: NICOTINE 7 MG/24 HOURS TOPICAL PATCH TD SCH (10:48)
[2018-01-02] MEDS: PRENATAL VITAMINS W/ FOLIC ACID TABLET (FP) PO SCH (10:48)
[2018-01-02] MEDS: NICOTINE POLACRILEX 4 MG GUM BUC PRN (10:50)
--- NOTE | 2018-01-02 17:32 | PN ---
[facility] Progress Note Note: Patient is referred for elevated ammonia level. Ammonia level trending down as follows; 12/27- 127.20, 12/28 -85.24, 01/02 -74.22. Patient is on lactulose 20ml PO TID. On exam, resident is not in distress or with gross confusion, she responds appropriately to questions, but as per nurse, she has some disorientation. Will continue current dose of lactulose and continue to monitor. Repeat ammonia level on 01/04
[2018-01-02] MEDS: DOXEPIN HCL 50 MG CAPSULE PO SCH (21:05)
[2018-01-02] MEDS: THIAMINE HCL 100 MG TABLET (FP) PO SCH (21:05)
[2018-01-02] MEDS: MIRTAZAPINE 15 MG TABLET (FP) PO SCH (21:05)
[2018-01-02] MEDS: hydrOXYzine PAMOATE 25 MG CAPSULE (FP) PO PRN (21:06)
--- NOTE | 2018-01-03 00:55 | PN ---
[facility] Progress Note Note: Psychiatry Attending's on-call note : Called to address patient's complaint of insomnia. Chart reviewed. Noted orders for doxepin,remeron,melatonin. All already dispensed.Spoke to patient via telephone. Sleep hygiene discussed.NO more medication will be given. Ms Carranza is made aware of this careplan.Reassurance provided. Patient responded favorably to redirection.Retired to her room. Discussed with nurse on duty.
[2018-01-03] MEDS: hydrOXYzine PAMOATE 25 MG CAPSULE (FP) PO PRN ×3 (02:23→23:13)
[2018-01-03] MEDS: LACTULOSE 20 GM/30 ML UDC (FOR ORAL USE ONLY) PO SCH ×3 (06:36→21:36)
[2018-01-03] MEDS: CYCLOBENZAPRINE HCL 5 MG TABLET PO SCH ×3 (06:36→21:36)
[2018-01-03] MEDS: PRENATAL VITAMINS W/ FOLIC ACID TABLET (FP) PO SCH (09:41)
[2018-01-03] MEDS: OLANZapine 10 MG TABLET PO SCH (09:41)
[2018-01-03] MEDS: NICOTINE POLACRILEX 4 MG GUM BUC PRN (09:43)
[2018-01-03] MEDS: NICOTINE 7 MG/24 HOURS TOPICAL PATCH TD SCH (09:43)
[2018-01-03] MEDS: THIAMINE HCL 100 MG TABLET (FP) PO SCH (21:37)
[2018-01-03] MEDS: DOXEPIN HCL 50 MG CAPSULE PO SCH (21:37)
[2018-01-03] MEDS: MIRTAZAPINE 15 MG TABLET (FP) PO SCH (21:37)
[2018-01-03] MEDS ORDERED: TRIMETHOBENZAMIDE HCL 200MG/2ML INJ IM PRN (23:19)
[2018-01-04] MEDS: CYCLOBENZAPRINE HCL 5 MG TABLET PO SCH ×3 (06:10→21:11)
[2018-01-04] MEDS: LACTULOSE 20 GM/30 ML UDC (FOR ORAL USE ONLY) PO SCH ×4 (06:11→21:11)
[2018-01-04] MEDS: PRENATAL VITAMINS W/ FOLIC ACID TABLET (FP) PO SCH (09:32)
[2018-01-04] MEDS: OLANZapine 10 MG TABLET PO SCH ×2 (09:32→21:12)
[2018-01-04] MEDS: NICOTINE 7 MG/24 HOURS TOPICAL PATCH TD SCH (09:33)
--- NOTE | 2018-01-04 13:57 | PN ---
S Progress Note Note: Vital Signs Temperature 98.1 F 01/04/18 07:22 Pulse Rate 100 H 01/04/18 07:22 Respiratory Rate 16 01/04/18 07:22 Blood Pressure 126/79 01/04/18 07:22 O2 Sat by Pulse Oximetry (%) Laboratory Last Values Ammonia 112.10 umol/L (11-32) H 01/04/18 07:00 patient c/o of back pain elevated ammonia levels lidocaine patch for back pain low WBC = 2.9, repeat in AM increase lactulose to QID for elevated ammonia levels and repeat in AM increase fluids continue to monitor
--- NOTE | 2018-01-04 14:39 | PN ---
[facility] Progress Note Note: Vital Signs Temperature 98.1 F 01/04/18 07:22 Pulse Rate 100 H 01/04/18 07:22 Respiratory Rate 16 01/04/18 07:22 Blood Pressure 126/79 01/04/18 07:22 O2 Sat by Pulse Oximetry (%) Home medications reviewed patient on spironolactone and lasix QD continue to monitor meds ordered
[2018-01-04] MEDS: LIDOCAINE 5% TOPICAL PATCH TP SCH (14:56)
--- NOTE | 2018-01-04 16:32 | PN ---
Psychiatric Progress Note Vital Signs: Vital Signs Period Temp Pulse Resp BP Sys/Talavera Pulse Ox Last 24 Hr 98.1 F 100 16-16 126/79 Date of Session: 01/04/18 Chief Complaint:: My sleep is a big problem. HPI: Patient addressed Alcohol,Opioid and cocaine dependence comorbid with Bipolar disorder. ROS: Significant for Liver cirrhosis,hep C,HTN. Current Medications: Active Medications Generic Name Dose Route Start Last Admin Trade Name Freq PRN Reason Stop Dose Admin Al Hydroxide/Mg Hydroxide 30 ml 12/31/17 15:07 Mylanta Oral Suspension - PO Q6H PRN DYSPEPSIA Cyclobenzaprine HCl 5 mg 12/31/17 22:00 01/04/18 14:55 Cyclobenzaprine Hcl PO 5 mg TID STACIE Administration Doxepin HCl 100 mg 01/04/18 16:23 Sinequan - PO HS STACIE Eucalyptus/Menthol/Phenol/Sorbitol 1 each 12/31/17 15:07 Cepastat Lozenge - MM Q4H PRN SORE THROAT Furosemide 20 mg 01/05/18 10:00 Lasix - PO DAILY STACIE Guaifenesin 10 ml 12/31/17 15:07 Robitussin Dm - PO Q6H PRN COUGH Hydroxyzine Pamoate 25 mg 12/31/17 15:07 01/03/18 23:13 Vistaril - PO 25 mg Q4H PRN Administration AGITATION Ibuprofen 400 mg 12/31/17 15:07 01/01/18 00:28 Motrin - PO 400 mg Q6H PRN Administration Pain Level 4-6 Lactulose 20 gm 01/04/18 14:00 01/04/18 14:55 Cephulac (Oral Use) PO 20 gm QID STACIE Administration Lidocaine 1 patch 01/04/18 14:00 01/04/18 14:56 Lidoderm Patch - TP 1 patch DAILY STACIE Administration Loperamide HCl 4 mg 12/31/17 15:07 Imodium - PO Q6H PRN DIARRHEA Magnesium Citrate 300 ml 12/31/17 15:07 01/03/18 17:46 Citroma - PO 300 ml Q48H PRN Administration CONSTIPATION Magnesium Hydroxide 30 ml 12/31/17 15:07 Milk Of Magnesia - PO DAILY PRN CONSTIPATION Melatonin 5 mg 12/31/17 22:00 01/02/18 21:51 Melatonin PO 5 mg HS PRN Administration INSOMNIA Mirtazapine 15 mg 12/31/17 22:00 01/03/18 21:37 Remeron - PO 15 mg HS STACIE Administration Miscellaneous 1 each 01/04/18 22:00 Lidoderm Patch Removal MC DAILY@2200 STACIE Nicotine 7 mg 01/01/18 10:00 01/04/18 09:33 Nicoderm Patch - TD Not Given DAILY [facility] Nicotine Polacrilex 4 mg 12/31/17 15:07 01/03/18 09:43 Nicorette Gum - BUC 4 mg Q2H PRN Administration NICOTINE REPLACEMENT RX Olanzapine 10 mg 01/04/18 22:00 Zyprexa - PO HS STACIE Multivit/Folic Acid/Iron 1 tab 01/01/18 10:00 01/04/18 09:32 Vitamins (Sjr) - PO 1 tab DAILY STACIE Administration Pseudoephedrine/Triprolidine 1 combo 12/31/17 15:07 Actifed - PO TID PRN NASAL CONGESTION Spironolactone 50 mg 01/05/18 10:00 Aldactone - PO DAILY STACIE Thiamine HCl 100 mg 12/31/17 22:00 01/03/18 21:37 Vitamin B1 - PO 100 mg HS STACIE Administration Trimethobenzamide HCl 200 mg 01/03/18 23:19 01/03/18 23:32 Tigan Injection - IM 200 mg Q8H PRN Administration NAUSEA Current Side Effect: No Lab tests ordered: No Lab tests reviewed: Yes Provider note:: Chart was revuewed,patient was evaluated ,treatment plan including medications management has been discussed with the patient.Zyprexa 10 mg po daily will be switched to HS,Doxepin 50 mg po hs will be adjusted to 100 mg po hs. Relaxation techniques has been discussed with the patient,supportive therapy provided. Total face to face time:: 25 Mental Status Exam - Mental Status Exam Alert and Oriented to: Time, Place, Person Cognitive Function: Grossly Intact Patient Appearance: Unkempt Mood: Sad Affect: Mood Congruent, Labile Patient Behavior: Cooperative Speech Pattern: Clear Voice Loudness: Normal Thought Process: Goal Oriented Thought Disorder: Not Present Hallucinations: Denies Suicidal Ideation: Denies Homicidal Ideation: Denies Insight/Judgement: Fair Sleep: Difficulty falling asleep Appetite: Fair Muscle strength/Tone: Normal Gait/Station: Normal Psychiatric Treatment Plan - Problem List (1) Bipolar disorder Current Visit: Yes (2) Cocaine dependence Current Visit: Yes Qualifiers: Substance use status: uncomplicated Qualified Code(s): F14.20 - Cocaine dependence, uncomplicated (3) History of anemia Current Visit: Yes (4) Nicotine dependence Current Visit: Yes Qualifiers: Nicotine product type: cigarettes Substance use status: uncomplicated Qualified Code(s): F17.210 - Nicotine dependence, cigarettes, uncomplicated (5) Opioid dependence on agonist therapy Current Visit: Yes (6) Alcohol dependence Current Visit: Yes (7) Hepatitis C Current Visit: Yes Qualifiers: Viral hepatitis chronicity: chronic Hepatic coma status: without hepatic coma Qualified Code(s): B18.2 - Chronic viral hepatitis C (8) History of iron deficiency anemia Current Visit: Yes (9) Liver cirrhosis Current Visit: Yes
[2018-01-04] MEDS: MIRTAZAPINE 15 MG TABLET (FP) PO SCH (21:11)
[2018-01-04] MEDS: LIDOCAINE PATCH REMOVAL MC SCH (21:11)
[2018-01-04] MEDS: THIAMINE HCL 100 MG TABLET (FP) PO SCH (21:11)
[2018-01-04] MEDS: DOXEPIN HCL 50 MG CAPSULE PO SCH (21:12)
[2018-01-05] MEDS: CYCLOBENZAPRINE HCL 5 MG TABLET PO SCH ×3 (06:41→21:55)
--- NOTE | 2018-01-05 08:08 | PN ---
[facility] Progress Note Note: LATE ENTRY: I was notified by Ms. Alberto Richardson RN that patient fell trying to climb out of bed. Patient was seen and examined at bedside. She was alert with periods of confusion. Ammonia level is 73.4 on Lactulose. No visible injury noted at this time. Patient denies headache, vomiting, pain or discomfort at this time. No behavioral changes, bruises or swelling noted or reported at this time. Vital signs within patient's norm. Patient's fall was unwitnessed. Fall protocol # 1 initiated. Patient is being sent to Emergency room for further evaluation. Endorsed to Dr. Aviles
[2018-01-05] MEDS: SPIRONOLACTONE 25 MG TABLET (FP) PO SCH (09:36)
[2018-01-05] MEDS: LACTULOSE 20 GM/30 ML UDC (FOR ORAL USE ONLY) PO SCH ×4 (09:37→21:55)
[2018-01-05] MEDS: NICOTINE 7 MG/24 HOURS TOPICAL PATCH TD SCH (09:37)
[2018-01-05] MEDS: FUROSEMIDE 20 MG TABLET (FP) PO SCH (09:37)
[2018-01-05] MEDS: LIDOCAINE 5% TOPICAL PATCH TP SCH (09:37)
[2018-01-05] MEDS: PRENATAL VITAMINS W/ FOLIC ACID TABLET (FP) PO SCH (09:37)
[2018-01-05 10:12] LABS: BASO % 0.5 % (0-2.0); EOS % 2.3 % (0-4.5); HEMATOCRIT 41.6 % (32.4-45.2); HEMOGLOBIN 13.8 GM/dL (10.7-15.3); LYMPH % 34.9 % (8-40); MCH 33.1 pg (25.7-33.7); MCHC 33.1 g/dl (32.0-36.0); MEAN PLT VOLUME 8.8 fl (7.5-11.1); MONO % 8.8 % (3.8-10.2); NEUT % 53.5 % (42.8-82.8); PLATELET COUNT 69 K/MM3 (134-434); RBC 4.16 M/mm3 (3.60-5.2); RDW 14.5 % (11.6-15.6); WHITE BLOOD COUNT 3.8 K/mm3 (4.0-10.0)
[2018-01-05] MEDS: DOXEPIN HCL 50 MG CAPSULE PO SCH (21:55)
[2018-01-05] MEDS: THIAMINE HCL 100 MG TABLET (FP) PO SCH (21:55)
[2018-01-05] MEDS: OLANZapine 10 MG TABLET PO SCH (21:55)
[2018-01-05] MEDS: MIRTAZAPINE 15 MG TABLET (FP) PO SCH (21:56)
[2018-01-05] MEDS: LIDOCAINE PATCH REMOVAL MC SCH (21:57)
[2018-01-06] MEDS: CYCLOBENZAPRINE HCL 5 MG TABLET PO SCH ×3 (06:26→21:14)
[2018-01-06] MEDS: LACTULOSE 20 GM/30 ML UDC (FOR ORAL USE ONLY) PO SCH ×4 (09:32→21:15)
[2018-01-06] MEDS: FUROSEMIDE 20 MG TABLET (FP) PO SCH (09:35)
[2018-01-06] MEDS: PRENATAL VITAMINS W/ FOLIC ACID TABLET (FP) PO SCH (09:35)
[2018-01-06] MEDS: SPIRONOLACTONE 25 MG TABLET (FP) PO SCH (09:35)
[2018-01-06] MEDS: NICOTINE 7 MG/24 HOURS TOPICAL PATCH TD SCH (09:36)
[2018-01-06] MEDS: LIDOCAINE 5% TOPICAL PATCH TP SCH (09:36)
--- NOTE | 2018-01-06 14:23 | PN ---
[facility] Progress Note Note: Vital Signs Temperature 98.4 F 01/06/18 07:07 Pulse Rate 114 H 01/06/18 09:46 Respiratory Rate 16 01/06/18 07:07 Blood Pressure 118/76 01/06/18 09:46 O2 Sat by Pulse Oximetry (%) Patient c/o gas and right hip pain. RN reported patient has occasional slurred speech, as per patient, normal speech pattern. Patient currently stable, evaluated 01/05/18 at [facility] for post fall, CT Scan Neg for bleed. Patient Aox 3, no distress EENT WNL ( poor dentition) no JVD neruo unremarkable + R hip pain with mild on limp Full ROM No edema present Laboratory Last Values WBC 3.8 K/mm3 (4.0-10.0) L 01/05/18 08:30 RBC 4.16 M/mm3 (3.60-5.2) 01/05/18 08:30 Hgb 13.8 GM/dL (10.7-15.3) 01/05/18 08:30 Hct 41.6 % (32.4-45.2) D 01/05/18 08:30 MCV 100.0 fl (80-96) H 01/05/18 08:30 MCH 33.1 pg (25.7-33.7) 01/05/18 08:30 MCHC 33.1 g/dl (32.0-36.0) 01/05/18 08:30 RDW 14.5 % (11.6-15.6) 01/05/18 08:30 Plt Count 69 K/MM3 (134-434) L D 01/05/18 08:30 MPV 8.8 fl (7.5-11.1) D 01/05/18 08:30 Absolute Neuts (auto) 2.0 K/mm3 (1.5-8.0) 01/05/18 08:30 Neutrophils % 53.5 % (42.8-82.8) 01/05/18 08:30 Lymphocytes % 34.9 % (8-40) 01/05/18 08:30 Monocytes % 8.8 % (3.8-10.2) 01/05/18 08:30 Eosinophils % 2.3 % (0-4.5) 01/05/18 08:30 Basophils % 0.5 % (0-2.0) 01/05/18 08:30 Nucleated RBC % 0 % (0-0) 01/05/18 08:30 Ammonia 73.4 umol/L (11-32) H 01/05/18 08:30 ammonia levels elevated on lactulose, asymptomatic at this time - hip pain Plan: cane for ambulation ibuprofen prn for pain increase fluids simethicone for gas continue to monitor
[2018-01-06] MEDS ORDERED: SIMETHICONE 80 MG TAB.CHEW (FP) PO PRN (14:27)
--- NOTE | 2018-01-06 14:41 | PN ---
[facility] Progress Note Note: Ensure d/c as per database design analyst rec.
[2018-01-06] MEDS: OLANZapine 10 MG TABLET PO SCH (21:13)
[2018-01-06] MEDS: THIAMINE HCL 100 MG TABLET (FP) PO SCH (21:13)
[2018-01-06] MEDS: DOXEPIN HCL 50 MG CAPSULE PO SCH (21:13)
[2018-01-06] MEDS: MIRTAZAPINE 15 MG TABLET (FP) PO SCH (21:14)
[2018-01-06] MEDS: LIDOCAINE PATCH REMOVAL MC SCH (21:14)
[2018-01-07] MEDS: CYCLOBENZAPRINE HCL 5 MG TABLET PO SCH ×3 (06:43→21:29)
[2018-01-07] MEDS: PRENATAL VITAMINS W/ FOLIC ACID TABLET (FP) PO SCH (09:45)
[2018-01-07] MEDS: FUROSEMIDE 20 MG TABLET (FP) PO SCH (09:45)
[2018-01-07] MEDS: LACTULOSE 20 GM/30 ML UDC (FOR ORAL USE ONLY) PO SCH ×4 (09:45→21:29)
[2018-01-07] MEDS: NICOTINE 7 MG/24 HOURS TOPICAL PATCH TD SCH (09:45)
[2018-01-07] MEDS: SPIRONOLACTONE 25 MG TABLET (FP) PO SCH (09:45)
[2018-01-07] MEDS: LIDOCAINE 5% TOPICAL PATCH TP SCH (09:46)
--- NOTE | 2018-01-07 14:57 | PN ---
[facility] Progress Note Note: Vital Signs Temperature 98.3 F 01/07/18 07:11 Pulse Rate 112 H 01/07/18 09:22 Respiratory Rate 20 01/07/18 07:11 Blood Pressure 119/77 01/07/18 09:22 O2 Sat by Pulse Oximetry (%) Laboratory Last Values WBC 3.8 K/mm3 (4.0-10.0) L 01/05/18 08:30 RBC 4.16 M/mm3 (3.60-5.2) 01/05/18 08:30 Hgb 13.8 GM/dL (10.7-15.3) 01/05/18 08:30 Hct 41.6 % (32.4-45.2) D 01/05/18 08:30 MCV 100.0 fl (80-96) H 01/05/18 08:30 MCH 33.1 pg (25.7-33.7) 01/05/18 08:30 MCHC 33.1 g/dl (32.0-36.0) 01/05/18 08:30 RDW 14.5 % (11.6-15.6) 01/05/18 08:30 Plt Count 69 K/MM3 (134-434) L D 01/05/18 08:30 MPV 8.8 fl (7.5-11.1) D 01/05/18 08:30 Absolute Neuts (auto) 2.0 K/mm3 (1.5-8.0) 01/05/18 08:30 Neutrophils % 53.5 % (42.8-82.8) 01/05/18 08:30 Lymphocytes % 34.9 % (8-40) 01/05/18 08:30 Monocytes % 8.8 % (3.8-10.2) 01/05/18 08:30 Eosinophils % 2.3 % (0-4.5) 01/05/18 08:30 Basophils % 0.5 % (0-2.0) 01/05/18 08:30 Nucleated RBC % 0 % (0-0) 01/05/18 08:30 Ammonia 51.3 umol/L (11-32) H 01/07/18 07:40 Patient stable, symptomatic ammonia levels improve from 73.4 to 51.3 continue lactulose increase fluids repeat Ammonia 01/14 continue to monitor
[2018-01-07] MEDS: LIDOCAINE PATCH REMOVAL MC SCH (21:30)
[2018-01-07] MEDS: MIRTAZAPINE 15 MG TABLET (FP) PO SCH (21:30)
[2018-01-07] MEDS: DOXEPIN HCL 50 MG CAPSULE PO SCH (21:30)
[2018-01-07] MEDS: THIAMINE HCL 100 MG TABLET (FP) PO SCH (21:30)
[2018-01-07] MEDS: OLANZapine 10 MG TABLET PO SCH (21:30)
[2018-01-07] MEDS: hydrOXYzine PAMOATE 25 MG CAPSULE (FP) PO PRN (21:31)
[2018-01-07] MEDS: MELATONIN 5 MG TABLETS PO PRN (21:31)
[2018-01-08] MEDS: CYCLOBENZAPRINE HCL 5 MG TABLET PO SCH ×3 (06:42→21:39)
[2018-01-08] MEDS: SPIRONOLACTONE 25 MG TABLET (FP) PO SCH (09:12)
[2018-01-08] MEDS: FUROSEMIDE 20 MG TABLET (FP) PO SCH (09:12)
[2018-01-08] MEDS: LIDOCAINE 5% TOPICAL PATCH TP SCH (09:12)
[2018-01-08] MEDS: LACTULOSE 20 GM/30 ML UDC (FOR ORAL USE ONLY) PO SCH ×4 (09:12→21:39)
[2018-01-08] MEDS: PRENATAL VITAMINS W/ FOLIC ACID TABLET (FP) PO SCH (09:12)
[2018-01-08] MEDS: NICOTINE 7 MG/24 HOURS TOPICAL PATCH TD SCH (09:13)
[2018-01-08] MEDS: NICOTINE POLACRILEX 4 MG GUM BUC PRN (09:14)
[2018-01-08] MEDS ORDERED: PT OWN MED DRAWER 7, Y5N ONE (13:02)
[2018-01-08] MEDS: DOXEPIN HCL 50 MG CAPSULE PO SCH (21:39)
[2018-01-08] MEDS: OLANZapine 10 MG TABLET PO SCH (21:40)
[2018-01-08] MEDS: MIRTAZAPINE 15 MG TABLET (FP) PO SCH (21:40)
[2018-01-08] MEDS: THIAMINE HCL 100 MG TABLET (FP) PO SCH (21:40)
[2018-01-08] MEDS: LIDOCAINE PATCH REMOVAL MC SCH (22:58)
[2018-01-09] MEDS: CYCLOBENZAPRINE HCL 5 MG TABLET PO SCH ×3 (06:26→21:20)
[2018-01-09] MEDS: LIDOCAINE 5% TOPICAL PATCH TP SCH (09:59)
[2018-01-09] MEDS: NICOTINE 7 MG/24 HOURS TOPICAL PATCH TD SCH (09:59)
[2018-01-09] MEDS: LACTULOSE 20 GM/30 ML UDC (FOR ORAL USE ONLY) PO SCH ×4 (09:59→21:22)
[2018-01-09] MEDS: PRENATAL VITAMINS W/ FOLIC ACID TABLET (FP) PO SCH (09:59)
[2018-01-09] MEDS: FUROSEMIDE 20 MG TABLET (FP) PO SCH (10:00)
[2018-01-09] MEDS: SPIRONOLACTONE 25 MG TABLET (FP) PO SCH (10:00)
[2018-01-09] MEDS: THIAMINE HCL 100 MG TABLET (FP) PO SCH (21:20)
[2018-01-09] MEDS: OLANZapine 10 MG TABLET PO SCH (21:21)
[2018-01-09] MEDS: LIDOCAINE PATCH REMOVAL MC SCH (21:21)
[2018-01-09] MEDS: DOXEPIN HCL 50 MG CAPSULE PO SCH (21:21)
[2018-01-09] MEDS: MIRTAZAPINE 15 MG TABLET (FP) PO SCH (21:21)
[2018-01-10] MEDS: CYCLOBENZAPRINE HCL 5 MG TABLET PO SCH ×3 (06:34→21:49)
[2018-01-10] MEDS: NICOTINE 7 MG/24 HOURS TOPICAL PATCH TD SCH (09:43)
[2018-01-10] MEDS: LIDOCAINE 5% TOPICAL PATCH TP SCH (09:43)
[2018-01-10] MEDS: LACTULOSE 20 GM/30 ML UDC (FOR ORAL USE ONLY) PO SCH ×4 (09:44→21:51)
[2018-01-10] MEDS: FUROSEMIDE 20 MG TABLET (FP) PO SCH (09:45)
[2018-01-10] MEDS: PRENATAL VITAMINS W/ FOLIC ACID TABLET (FP) PO SCH (09:45)
[2018-01-10] MEDS: SPIRONOLACTONE 25 MG TABLET (FP) PO SCH (09:45)
[2018-01-10] MEDS: THIAMINE HCL 100 MG TABLET (FP) PO SCH (21:49)
[2018-01-10] MEDS: MIRTAZAPINE 15 MG TABLET (FP) PO SCH (21:49)
[2018-01-10] MEDS: OLANZapine 10 MG TABLET PO SCH (21:49)
[2018-01-10] MEDS: LIDOCAINE PATCH REMOVAL MC SCH (21:50)
[2018-01-10] MEDS: DOXEPIN HCL 50 MG CAPSULE PO SCH (21:50)
[2018-01-11] MEDS: hydrOXYzine PAMOATE 25 MG CAPSULE (FP) PO PRN (00:36)
[2018-01-11] MEDS: CYCLOBENZAPRINE HCL 5 MG TABLET PO SCH ×3 (06:03→21:42)
[2018-01-11 06:58] VITALS: TEMP 98.3
[2018-01-11] MEDS: SPIRONOLACTONE 25 MG TABLET (FP) PO SCH (09:40)
[2018-01-11] MEDS: PRENATAL VITAMINS W/ FOLIC ACID TABLET (FP) PO SCH (09:40)
[2018-01-11] MEDS: FUROSEMIDE 20 MG TABLET (FP) PO SCH (09:40)
[2018-01-11] MEDS: LIDOCAINE 5% TOPICAL PATCH TP SCH (09:41)
[2018-01-11] MEDS: NICOTINE 7 MG/24 HOURS TOPICAL PATCH TD SCH (09:41)
[2018-01-11] MEDS: LACTULOSE 20 GM/30 ML UDC (FOR ORAL USE ONLY) PO SCH ×4 (09:41→21:42)
[2018-01-11] MEDS: DOXEPIN HCL 50 MG CAPSULE PO SCH (21:42)
[2018-01-11] MEDS: OLANZapine 10 MG TABLET PO SCH (21:42)
[2018-01-11] MEDS: MIRTAZAPINE 15 MG TABLET (FP) PO SCH (21:42)
[2018-01-11] MEDS: LIDOCAINE PATCH REMOVAL MC SCH (21:43)
[2018-01-11] MEDS: THIAMINE HCL 100 MG TABLET (FP) PO SCH (21:43)
[2018-01-12] MEDS: CYCLOBENZAPRINE HCL 5 MG TABLET PO SCH ×2 (06:23→14:19)
[2018-01-12 09:16] VITALS: BP 120/76; PULSE 108
[2018-01-12] MEDS: LACTULOSE 20 GM/30 ML UDC (FOR ORAL USE ONLY) PO SCH ×3 (09:59→18:30)
[2018-01-12] MEDS: LIDOCAINE 5% TOPICAL PATCH TP SCH (09:59)
[2018-01-12] MEDS: NICOTINE 7 MG/24 HOURS TOPICAL PATCH TD SCH (09:59)
[2018-01-12] MEDS: FUROSEMIDE 20 MG TABLET (FP) PO SCH (10:00)
[2018-01-12] MEDS: PRENATAL VITAMINS W/ FOLIC ACID TABLET (FP) PO SCH (10:00)
[2018-01-12] MEDS: SPIRONOLACTONE 25 MG TABLET (FP) PO SCH (10:00)
[2018-01-12] MEDS: NICOTINE POLACRILEX 4 MG GUM BUC PRN (10:02)
== END 2018-01-12 18:55 | disposition home or self-care (01) | DRG 772 ==
LOC: YASAS 11:51 → Y3E 11:52
PROVIDERS: ADMIT Psychiatry & Neurology Psychiatry; ATTEND Psychiatry & Neurology Psychiatry
PROC: HZ42ZZZ Group Counseling for Substance Abuse Treatment, Cognitive-Behavioral (ICD-10-PCS; principal; 2017-12-31)
DX: F10.20 Alcohol dependence, uncomplicated (principal); F11.20 Opioid dependence, uncomplicated; F14.20 Cocaine dependence, uncomplicated; F17.210 Nicotine dependence, cigarettes, uncomplicated; F31.9 Bipolar disorder, unspecified; I10 Essential (primary) hypertension; K74.60 Unspecified cirrhosis of liver; B18.2 Chronic viral hepatitis C; R79.89 Other specified abnormal findings of blood chemistry; M54.5 Low back pain; Z86.2 Personal history of diseases of the blood and blood-forming organs and certain disorders involving the immune mechanism
CPT/HCPCS: 36415; 82140; 85025

== ENCOUNTER 2019-02-11 13:51 | Inpatient (IN) | payer OTHER ==
[2019-02-11 17:04] VITALS: BMI 30.9
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
[2019-02-11] MEDS ORDERED: NICOTINE POLACRILEX 2 MG GUM BUC PRN (17:52)
[2019-02-11] MEDS ORDERED: MAGNESIUM CITRATE 300 ML BOTTLE PO PRN (17:52)
[2019-02-11] MEDS ORDERED: ACETAMINOPHEN 325 MG TABLET (FP) PO PRN ×2 (17:52)
[2019-02-11] MEDS ORDERED: MAG HYDROX/AL HYDROX/SIMETH 30 ML UNIT-DOSE CUP PO PRN (17:52)
[2019-02-11] MEDS ORDERED: MENTHOL/PHENOL 1 EACH UD MM PRN (17:52)
[2019-02-11] MEDS ORDERED: IBUPROFEN 400 MG TABLET (FP) PO PRN (17:52)
[2019-02-11] MEDS ORDERED: LORazepam 1 MG TABLET PO PRN (17:52)
[2019-02-11] MEDS ORDERED: BISMUTH SUBSALICYLATE 524 MG/30 ML UD PO PRN (17:52)
[2019-02-11] MEDS ORDERED: MAGNESIUM HYDROX 2400MG/30ML ORAL SUSPENSION 30 ML CUP PO PRN (17:52)
[2019-02-11] MEDS ORDERED: CHOLECALCIFEROL (VIT D3) 1,000 UNIT (25 MCG) TABLET PO SCH (18:00)
[2019-02-11] MEDS ORDERED: METHADONE HCL 10 MG TABLET (FOR DETOX USE ONLY) PO ONE ×2 (19:00→23:30)
[2019-02-11] MEDS ORDERED: MIRTAZAPINE 15 MG TABLET (FP) PO SCH (22:00)
[2019-02-11] MEDS: MELATONIN 5 MG TABLETS PO PRN (23:23)
[2019-02-11] MEDS: LACTULOSE 20 GM/30 ML UDC (FOR ORAL USE ONLY) PO SCH (23:23)
[2019-02-11] MEDS: LORazepam 2 MG TABLET PO SCH (23:23)
[2019-02-11] MEDS: METHOCARBAMOL 500 MG TABLET PO PRN (23:23)
[2019-02-11] MEDS: THIAMINE HCL 100 MG TABLET (FP) PO SCH (23:23)
[2019-02-12] MEDS: LACTULOSE 20 GM/30 ML UDC (FOR ORAL USE ONLY) PO SCH ×3 (05:58→22:53)
[2019-02-12] MEDS: LORazepam 2 MG TABLET PO SCH ×4 (05:58→22:52)
[2019-02-12] MEDS: METHOCARBAMOL 500 MG TABLET PO PRN (06:01)
--- NOTE | 2019-02-12 09:47 | EKG ---
Test Reason : Blood Pressure : / mmHG Vent. Rate : 076 BPM Atrial Rate : 076 BPM P-R Int : 150 ms QRS Dur : 074 ms QT Int : 438 ms P-R-T Axes : -23 036 045 degrees QTc Int : 492 ms NORMAL SINUS RHYTHM PROLONGED QT ABNORMAL ECG Confirmed by LIZZETTE COX MD ([id number]) on 02/12/2019 9:47:04 AM Referred By: WINTER PUGA Confirmed By:LIZZETTE COX MD
[2019-02-12] MEDS ORDERED: METHADONE HCL 5 MG TABLET (FOR DETOX USE ONLY) PO ONE (10:00)
[2019-02-12] MEDS: PRENATAL VITAMINS W/ FOLIC ACID TABLET (FP) PO SCH (10:47)
[2019-02-12] MEDS: SPIRONOLACTONE 25 MG TABLET (FP) PO SCH (10:47)
[2019-02-12] MEDS: FUROSEMIDE 20 MG TABLET (FP) PO SCH (10:47)
[2019-02-12] MEDS: NICOTINE 14 MG/24 HOURS TOPICAL PATCH TD SCH (10:47)
[2019-02-12 11:16] LABS: HEMATOCRIT 37.3 % (32.4-45.2); HEMOGLOBIN 12.8 GM/dL (10.7-15.3); MCH 34.6 pg (25.7-33.7); MCHC 34.2 g/dl (32.0-36.0); MEAN PLT VOLUME 9.3 fl (7.5-11.1); PLATELET COUNT 62 K/MM3 (134-434); RBC 3.69 M/mm3 (3.60-5.2); RDW 13.6 % (11.6-15.6); WHITE BLOOD COUNT 3.2 K/mm3 (4.0-10.0)
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
[2019-02-12 11:33] LABS: ALBUMIN 2.8 g/dl (3.4-5.0); BILIRUBIN,TOTAL 1.9 mg/dL (0.2-1); CALCIUM 8.4 mg/dL (8.5-10.1); CREATININE 0.7 mg/dL (0.55-1.3); POTASSIUM 4.3 mmol/L (3.5-5.1); TOT PROT 6.9 g/dl (6.4-8.2)
--- NOTE | 2019-02-12 14:27 | PN ---
[facility] CIWA - CIWA Score Nausea/Vomitin-No Nausea/No Vomiting Muscle Tremors: 2 Anxiety: 2 Agitation: 0-Normal Activity Paroxysmal Sweats: 3 Orientation: 0-Oriented Tacttile Disturbances: 0-None Auditory Disturbances: 0-None Visual Disturbances: 0-None Headache: 2-Mild CIWA-Ar Total Score: 9 [facility] COWS - Scale Resting Pulse: 1= [place] 81-100 Sweatin= Chills/Flushing Restless Observation: 1= Difficult to Sit Still Pupil Size: 0= Normal to Room Light Bone or Joint Aches: 2= Severe Diffuse Aches Runny Nose/ Eye Tearin= None GI Upset > 30mins: 0= None Tremor Observation of Outstretched Hands: 2= Slight Tremor Visible Yawning Observation: 1= 1-2x During Session Anxiety or Irritability: 2=Irritable/Anxious Goose Flesh Skin: 0=Smooth Skin COWS Score: 10 [facility] Progress Note (SOAP) Subjective: c/o anxiety, irritability, headache, shakes, and sweats. Objective: 02/12/19 14:26 Vital Signs 02/12/19 02/12/19 09:51 13:54 Temperature 97.6 F 98.8 F Pulse Rate 94 H 89 Respiratory 18 18 Rate Blood Pressure 131/74 129/62 Lab Results WBC 3.2 K/mm3 (4.0-10.0) L 02/12/19 08:10 RBC 3.69 M/mm3 (3.60-5.2) 02/12/19 08:10 Hgb 12.8 GM/dL (10.7-15.3) 02/12/19 08:10 Hct 37.3 % (32.4-45.2) 02/12/19 08:10 MCV 101.0 fl (80-96) H 02/12/19 08:10 MCHC 34.2 g/dl (32.0-36.0) 02/12/19 08:10 RDW 13.6 % (11.6-15.6) 02/12/19 08:10 Plt Count 62 K/MM3 (134-434) L 02/12/19 08:10 Sodium 141 mmol/L (136-145) 02/12/19 08:10 Potassium 4.3 mmol/L (3.5-5.1) 02/12/19 08:10 Chloride 109 mmol/L (98-107) H 02/12/19 08:10 Carbon Dioxide 27 mmol/L (21-32) 02/12/19 08:10 Anion Gap 5 MMOL/L (8-16) L 02/12/19 08:10 BUN 15.0 mg/dL (7-18) 02/12/19 08:10 Creatinine 0.7 mg/dL (0.55-1.3) 02/12/19 08:10 Random Glucose 154 mg/dL (74-106) H 02/12/19 08:10 Calcium 8.4 mg/dL (8.5-10.1) L 02/12/19 08:10 Labs noted. Assessment: 02/12/19 14:26 AOX3, in no acute respiratory distress. Full ROM, ambulating in the unit. Withdrawal symptoms. Plan: continue detox.
[2019-02-12] MEDS ORDERED: MIRTAZAPINE 15 MG TABLET (FP) PO SCH (22:00)
[2019-02-12] MEDS: THIAMINE HCL 100 MG TABLET (FP) PO SCH (22:52)
[2019-02-12] MEDS: traZODone HCL 50 MG TABLET (FP) PO SCH (22:52)
[2019-02-13] MEDS: LACTULOSE 20 GM/30 ML UDC (FOR ORAL USE ONLY) PO SCH ×3 (05:47→22:24)
[2019-02-13] MEDS: LORazepam 1 MG TABLET PO SCH ×4 (05:47→22:21)
[2019-02-13] MEDS ORDERED: METHADONE HCL 10 MG TABLET (FOR DETOX USE ONLY) PO ONE (10:00)
[2019-02-13] MEDS: FUROSEMIDE 20 MG TABLET (FP) PO SCH (10:29)
[2019-02-13] MEDS: PRENATAL VITAMINS W/ FOLIC ACID TABLET (FP) PO SCH (10:29)
[2019-02-13] MEDS: SPIRONOLACTONE 25 MG TABLET (FP) PO SCH (10:29)
[2019-02-13] MEDS: NICOTINE 14 MG/24 HOURS TOPICAL PATCH TD SCH (10:29)
[2019-02-13] MEDS: SERTRALINE HCL 50 MG TABLET (FP) PO SCH (10:29)
--- NOTE | 2019-02-13 17:20 | PN ---
[facility] CIWA - CIWA Score Nausea/Vomitin-Int. Nausea w/Dry Heave Muscle Tremors: 3 Anxiety: 1-Mildly Anxious Agitation: 0-Normal Activity Paroxysmal Sweats: 2 Orientation: 0-Oriented Tacttile Disturbances: 0-None Auditory Disturbances: 0-None Visual Disturbances: 0-None Headache: 0-None Present CIWA-Ar Total Score: 10 [facility] COWS - Scale Resting Pulse: 1= [place] 81-100 Sweatin= Chills/Flushing Restless Observation: 0= Sits Still Pupil Size: 0= Normal to Room Light Bone or Joint Aches: 1= Mild Discomfort Runny Nose/ Eye Tearin= None GI Upset > 30mins: 0= None Tremor Observation of Outstretched Hands: 2= Slight Tremor Visible Yawning Observation: 1= 1-2x During Session Anxiety or Irritability: 1=Feels Anxious/Irritable Goose Flesh Skin: 0=Smooth Skin COWS Score: 7 S Progress Note (SOAP) Subjective: sweats shakes Objective: 02/13/19 17:18 a & ox 3 Vital Signs Temperature 98.4 F 02/13/19 16:47 Pulse Rate 90 02/13/19 16:47 Respiratory Rate 18 02/13/19 16:47 Blood Pressure 112/70 02/13/19 16:47 O2 Sat by Pulse Oximetry (%) Assessment: 02/13/19 17:19 withdrawal sx Plan: continue detox increase hydration
[2019-02-13] MEDS: traZODone HCL 50 MG TABLET (FP) PO SCH (22:21)
[2019-02-13] MEDS: THIAMINE HCL 100 MG TABLET (FP) PO SCH (22:21)
[2019-02-13] MEDS: METHOCARBAMOL 500 MG TABLET PO PRN (22:23)
[2019-02-14] MEDS ORDERED: LORazepam 0.5 MG TABLET PO PRN
[2019-02-14] MEDS: MELATONIN 5 MG TABLETS PO PRN (01:11)
[2019-02-14] MEDS: LORazepam 0.5 MG TABLET PO SCH ×4 (05:32→22:23)
[2019-02-14] MEDS: LACTULOSE 20 GM/30 ML UDC (FOR ORAL USE ONLY) PO SCH ×3 (05:32→22:24)
[2019-02-14] MEDS ORDERED: METHADONE HCL 5 MG TABLET (FOR DETOX USE ONLY) PO ONE (06:00)
[2019-02-14] MEDS: FUROSEMIDE 20 MG TABLET (FP) PO SCH (10:14)
[2019-02-14] MEDS: SERTRALINE HCL 50 MG TABLET (FP) PO SCH (10:14)
[2019-02-14] MEDS: SPIRONOLACTONE 25 MG TABLET (FP) PO SCH (10:14)
[2019-02-14] MEDS: PRENATAL VITAMINS W/ FOLIC ACID TABLET (FP) PO SCH (10:14)
[2019-02-14] MEDS: NICOTINE 14 MG/24 HOURS TOPICAL PATCH TD SCH (10:14)
--- NOTE | 2019-02-14 10:33 | PN ---
[facility] CIWA - CIWA Score Nausea/Vomitin-No Nausea/No Vomiting Muscle Tremors: 3 Anxiety: 2 Agitation: 2 Paroxysmal Sweats: 2 Orientation: 0-Oriented Tacttile Disturbances: 0-None Auditory Disturbances: 0-None Visual Disturbances: 0-None Headache: 0-None Present CIWA-Ar Total Score: 9 BHS COWS - Scale Resting Pulse: 2= ND 101-120 Sweatin= Chills/Flushing Restless Observation: 1= Difficult to Sit Still Pupil Size: 0= Normal to Room Light Bone or Joint Aches: 1= Mild Discomfort Runny Nose/ Eye Tearin= None GI Upset > 30mins: 0= None Tremor Observation of Outstretched Hands: 1= Tremor [place], Not Seen Yawning Observation: 0= None Anxiety or Irritability: 1=Feels Anxious/Irritable Goose Flesh Skin: 0=Smooth Skin COWS Score: 7 S Progress Note (SOAP) Subjective: sweats loose stool interrupted sleep Objective: 02/14/19 10:32 Vital Signs Temperature 99.0 F 02/14/19 09:17 Pulse Rate 101 H 02/14/19 09:17 Respiratory Rate 18 02/14/19 09:17 Blood Pressure 133/78 02/14/19 09:17 O2 Sat by Pulse Oximetry (%) Laboratory Tests 02/12/19 02/12/19 02/12/19 08:10 08:10 08:10 WBC 3.2 L RBC 3.69 Hgb 12.8 Hct 37.3 MCV 101.0 H MCH 34.6 H MCHC 34.2 RDW 13.6 Plt Count 62 L MPV 9.3 Sodium 141 Potassium 4.3 Chloride 109 H Carbon Dioxide 27 Anion Gap 5 L BUN 15.0 Creatinine 0.7 Est GFR (CKD-EPI)AfAm 114.65 Est GFR (CKD-EPI)NonAf 98.92 Random Glucose 154 H Calcium 8.4 L Total Bilirubin 1.9 H AST 167 H ALT 87 H Alkaline Phosphatase 144 H Ammonia Total Protein 6.9 Albumin 2.8 L RPR Titer Nonreactive 02/12/19 08:10 WBC RBC Hgb Hct MCV MCH MCHC RDW Plt Count MPV Sodium Potassium Chloride Carbon Dioxide Anion Gap BUN Creatinine Est GFR (CKD-EPI)AfAm Est GFR (CKD-EPI)NonAf Random Glucose Calcium Total Bilirubin AST ALT Alkaline Phosphatase Ammonia 142.00 H Total Protein Albumin RPR Titer labs noted aaox3 ambulating no acute distress pt is currently on laculose for high ammonia level Assessment: 02/14/19 10:34 withdrawals Plan: continue detox increase fluids repeat ammonia level d/c in am
[2019-02-14 11:11] LABS: PH,URINE >= 9.0 (5.0-8.0); URINE APPEARANCE CLOUDY; URINE BILIRUBIN NEGATIVE (NEGATIVE); URINE COLOR YELLOW; URINE GLUCOSE (UA) NEGATIVE (NEGATIVE); URINE KETONE NEGATIVE (NEGATIVE); URINE LEUK ESTERASE NEGATIVE (NEGATIVE); URINE NITRITE NEGATIVE (NEGATIVE); URINE PROTEIN NEGATIVE (NEGATIVE); URINE UROBILINOGEN 0.2 mg/dL (0.2-1.0)
[2019-02-14] MEDS: THIAMINE HCL 100 MG TABLET (FP) PO SCH (22:23)
[2019-02-14] MEDS: traZODone HCL 50 MG TABLET (FP) PO SCH (22:23)
[2019-02-15] MEDS ORDERED: LORazepam 0.5 MG TABLET PO ONE (05:00)
[2019-02-15] MEDS: LACTULOSE 20 GM/30 ML UDC (FOR ORAL USE ONLY) PO SCH (05:51)
[2019-02-15 09:05] VITALS: BP 110/58; PULSE 84; TEMP 98.1
[2019-02-15] MEDS: FUROSEMIDE 20 MG TABLET (FP) PO SCH (09:23)
[2019-02-15] MEDS: SERTRALINE HCL 50 MG TABLET (FP) PO SCH (09:23)
[2019-02-15] MEDS: PRENATAL VITAMINS W/ FOLIC ACID TABLET (FP) PO SCH (09:23)
[2019-02-15] MEDS: NICOTINE 14 MG/24 HOURS TOPICAL PATCH TD SCH (09:23)
[2019-02-15] MEDS: SPIRONOLACTONE 25 MG TABLET (FP) PO SCH (09:23)
--- NOTE | 2019-02-15 09:25 | DS ---
[facility] Detox Discharge Summary Admission Date: 02/11/19 Discharge Date: 02/15/19 - History Present History: Alcohol Dependence, Cocaine Dependence, Opioid Dependence - Physical Exam Results Vital Signs: Vital Signs Temperature 98.1 F 02/15/19 09:04 Pulse Rate 84 02/15/19 09:04 Respiratory Rate 18 02/15/19 09:04 Blood Pressure 110/58 L 02/15/19 09:04 O2 Sat by Pulse Oximetry (%) - Treatment Hospital Course: Detox Protocol Followed, Detoxed Safely, Responded well, Discharged Condition Good, Rehab Referral Accepted - Medication Discharge Medications: Ambulatory Orders Mirtazapine [Remeron -] 15 mg PO HS #30 tablet 09/26/17 Olanzapine [Zyprexa -] 10 mg PO DAILY #30 tablet 09/26/17 Furosemide [Lasix -] 20 mg PO DAILY #30 tablet 01/12/18 Lactulose (Oral Use) [Cephulac -] 20 gm PO TID #1 udc 01/12/18 Spironolactone [Aldactone -] 50 mg PO DAILY #30 tablet 01/12/18 Cholecalciferol (Vitamin D3) [Vitamin D3 -] 1 iu PO WEEKLY 02/11/19 Sertraline HCl [Zoloft -] 50 mg PO DAILY 02/12/19 - Diagnosis (1) Back pain Current Visit: Yes Status: Chronic Qualifiers: Back pain location: back pain in unspecified location Chronicity: unspecified (2) Opioid dependence with withdrawal Current Visit: Yes Status: Acute (3) Substance induced mood disorder Current Visit: Yes Status: Acute (4) Substance-induced sleep disorder Current Visit: Yes Status: Acute (5) Alcohol dependence with uncomplicated withdrawal Current Visit: Yes Status: Chronic (6) Cocaine dependence Current Visit: Yes Status: Chronic Qualifiers: Substance use status: uncomplicated Qualified Code(s): F14.20 - Cocaine dependence, uncomplicated (7) History of iron deficiency anemia Current Visit: Yes Status: Chronic (8) Liver cirrhosis Current Visit: Yes Status: Chronic Qualifiers: Hepatic cirrhosis type: unspecified hepatic cirrhosis Ascites presence: without ascites Qualified Code(s): K74.60 - Unspecified cirrhosis of liver (9) Nicotine dependence Current Visit: Yes Status: Chronic Qualifiers: Nicotine product type: cigarettes Substance use status: uncomplicated Qualified Code(s): F17.210 - Nicotine dependence, cigarettes, uncomplicated (10) Drug-induced mood disorder Current Visit: No Status: Acute (11) Insomnia Current Visit: No Status: Acute (12) Ascites Current Visit: No Status: Chronic (13) Bipolar II disorder Current Visit: No Status: Chronic (14) Cirrhosis Current Visit: No Status: Chronic Qualifiers: Hepatic cirrhosis type: alcoholic cirrhosis Ascites presence: with ascites Qualified Code(s): K70.31 - Alcoholic cirrhosis of liver with ascites (15) Cocaine abuse Current Visit: Yes Status: Chronic (16) Hepatitis C Current Visit: Yes Status: Chronic Qualifiers: Viral hepatitis chronicity: chronic Hepatic coma status: without hepatic coma Qualified Code(s): B18.2 - Chronic viral hepatitis C (17) History of bipolar disorder Current Visit: No Status: Chronic (18) Increased ammonia level Current Visit: Yes Status: Chronic (19) Opioid dependence on agonist therapy Current Visit: No Status: Chronic (20) History of depression Current Visit: No Status: Suspected - AMA Did Patient Leave Against Medical Advice: No
== END 2019-02-15 11:07 | disposition home or self-care (01) | DRG 773 ==
LOC: YASAS 13:51 → Y6N 18:30
PROVIDERS: ADMIT Allergy & Immunology; ATTEND Allergy & Immunology
PROC: HZ2ZZZZ Detoxification Services for Substance Abuse Treatment (ICD-10-PCS; principal; 2019-02-11)
DX: F11.23 Opioid dependence with withdrawal (principal); F10.230 Alcohol dependence with withdrawal, uncomplicated; F14.20 Cocaine dependence, uncomplicated; F17.210 Nicotine dependence, cigarettes, uncomplicated; F19.24 Other psychoactive substance dependence with psychoactive substance-induced mood disorder; F19.282 Other psychoactive substance dependence with psychoactive substance-induced sleep disorder; G47.00 Insomnia, unspecified; K70.31 Alcoholic cirrhosis of liver with ascites; B18.2 Chronic viral hepatitis C; E72.20 Disorder of urea cycle metabolism, unspecified; Z62.810 Personal history of physical and sexual abuse in childhood; Z87.19 Personal history of other diseases of the digestive system
CPT/HCPCS: 36415; 80053; 81003; 81025; 82140; 85027; 86593; 87086; 93005; 93010